=== PATIENT | male | born 1980 | race Caucasian/White ===

== ENCOUNTER 2018-08-17 23:49 | Emergency (ER) | payer MEDICAID, SELFPAY ==
[2018-08-17 23:50] VITALS: BP 136/92; PULSE 97; RESP 17; TEMP 36.7; O2SAT 99; BMI 34.2
[2018-08-18] VITALS (15 sets, daily range): BP systolic 126–159; BP diastolic 76–90; PULSE 84–112; RESP 14–18; O2SAT 97–100
--- NOTE | 2018-08-18 00:08 | ED.RN ---
ATTEMPTED TO CALL PATIENTS EX-BRITNEY BELLA AT [phone]. SHE DID NOT ANSWER HER PHONE. PT NOTIFIED OF ATTEMPT
[2018-08-18 00:09] LABS: Vista UDS pH Range 6
[2018-08-18 00:17] LABS: Absolute Lymphocyte Count 4.93 X10^3/ul (0.83-4.51); Absolute Neutrophil Count 4.5 X10^3/uL (2.0-7.7); Basophil# 0.06 X10^3/uL; Basophil% 0.6 % (0-1); Eosinophil# 0.16 X10^3/uL; Eosinophils% 1.5 % (0-5); Hematocrit 43.9 % (40-54); Hemoglobin 15.5 g/dl (13.0-16.5); Lymphocyte # 4.93 X10^3/ul (4.0); Lymphocyte % 46.6 % (19-41); Mean Corp Hgb Conc 35.3 g/gl (32-36); Mean Corpuscular Hgb 29.6 pg (27.0-32.0); Mean Corpuscular Volume 83.9 fL (80-94); Mean Platelet Vol. 10.1 fl (6.2-12.0); Monocyte# 0.91 X10^3/uL; Monocyte% 8.6 % (0-10); Neutrophil % 42.4 % (47-70); POSITIVE COUNT NO; POSITIVE DIFFERENTIAL NO; POSITIVE MORPHOLOGY NO; Platelet Count 317 K/mm3 (150-450); RBC Distribution Width CV 13.9 % (11.6-14.6); RBC Distribution Width SD 42.1 fl (35.1-43.9); Red Blood Count 5.23 M/mm3 (4.6-6.2); White Blood Count 10.6 K/mm3 (4.4-11.0)
[2018-08-18 00:24] LABS: Amphetamine Urine VISTA NEGATIVE (<1000 ng/mL); Barbiturate Urine VISTA NEGATIVE (< 200 ng/mL); Benzodiazepine Urine VISTA NEGATIVE (< 200 ng/mL); Cocaine Urine VISTA NEGATIVE (< 300 ng/mL); Ecstacy Urine VISTA POSITIVE (< 500 ng/mL); Methadone Urine VISTA NEGATIVE (< 300 ng/mL); PCP Urine VISTA NEGATIVE (< 25 ng/mL); THC Urine VISTA NEGATIVE (< 50 ng/mL)
[2018-08-18 00:27] LABS: Anion Gap 8 (5-15); BUN 6 mg/dL (7-18); BUN/Creat Ratio 6.1 RATIO (10-20); Calcium,Total 8.7 mg/dL (8.5-10.1); Chloride 112 mmol/L (98-107); Creatinine, Serum 0.99 mg/dL (0.70-1.30); EST Glomerular Filtration Rate 89 mL/min (>60); Est Glom Filt Rate - Afr Amer 108 mL/min (>60); Glucose 102 mg/dL (74-106); Potassium 3.7 mmol/L (3.5-5.1); Sodium Level 142 mmol/L (136-145)
--- NOTE | 2018-08-18 00:52 | ED.VISSUMM ---
- ER Visit Summary Date of Service: 08/18/18 Chief Complaint: Suicidal ideation History of Present Illness: The patient is a 38 M who presents with suicidal ideations. Patient reports that he has been having suicidal thoughts for quite a while. However this was worse tonight. He considered a running into traffic. He contacted the counseling center and came in for evaluation. He states his symptoms are worse tonight due to alcohol. He is intoxicated. He otherwise denies recent medical illness. No fevers chest pain shortness of breath vomiting. Physical Examination: Afebrile vitals normal Patient calm and cooperative Patient does report suicidal thoughts and has a blunted affect Heart regular rate and rhythm Lungs clear Abdomen soft Test Results: CBC BMP unremarkable. Drug screen positive for MDMA. Alcohol 237. Emergency Department Course and Treatment: Once patient clinically sober he will be medically cleared. Patient will be observed until morning at which point he can be evaluated by crisis. Given suicidal thoughts with plan I do think he will ultimately need transferred. Treatment Plan: [] Disposition: Transfer pending crisis evaluation Impression: Suicidal ideation This note was generated with [employer] dictation software. It may contain incorrect words, spelling, and punctuation that were not noted in review of the chart prior to signing ED Disposition - Plan for ED Patient: Referrals: Diomedes Shine DO [Primary Care Provider] -
[2018-08-18] MEDS: LORazepam 1 MG Tablet PO ×2 (02:25→15:25)
--- NOTE | 2018-08-18 02:43 | ED.RN ---
PT FAMILY MEMBER CALLED AND WANTED THE TEAM TO BE AWARE THAT THE PT HAS HAD EPISODES OF SUICIDAL THOUGHTS BEFORE AND TAT THEY ARE TRIGGERED BY DRINKING ALCOHOL. DR. HALEY MADE AWARE NO FURTHER ORDERS AT THIS TIME WILL CONTINUE TO MONITOR THE PT AT THIS TIME.
--- NOTE | 2018-08-18 07:07 | ED.RN ---
HAND OFF REPORT GIVEN TO MYLES TONEY.
--- NOTE | 2018-08-18 07:12 | ED.RN ---
CALLED COUNSELING CENTER. THEY ARE PAGING CRISIS
--- NOTE | 2018-08-18 08:27 | ED.RN ---
SPOKE WITH BOBBY AT CRISIS, THEY JUST FINISHED REPORT. SOMEONE WILL BE OVER
--- NOTE | 2018-08-18 09:07 | ED.RN ---
STANLEY WITH CRISIS IS HERE TO EVAL PT
[2018-08-18] MEDS: Topiramate 25 MG Tablet PO (10:25)
[2018-08-18] MEDS: Pantoprazole Sodium 40 MG Tablet PO (10:26)
[2018-08-18] MEDS: busPIRone 5 MG Tablet PO (10:27)
[2018-08-18] MEDS: Cyanocobalamin 500 MCG Tablet PO (10:27)
[2018-08-18] MEDS: buPROPion (XL) 300 MG TABLET.XL PO (10:27)
[2018-08-18] MEDS: Lisinopril 20 MG Tablet PO (10:28)
[2018-08-18] MEDS: Aspirin 81 MG TAB.CHEW PO (10:28)
--- NOTE | 2018-08-18 10:30 | CM.ED ---
SOCIAL WORK DISCUSSED CASE WITH ELVIA FROM CRISIS. ANTICIPATE INPATIENT PSYCH PLACEMENT. NO REFERRALS HAVE BEEN MADE AT THIS TIME. THIS WORKER TO ASSIST NEEDED. FLOR TURK, LETTERPRESS SETTER, MANAGER TECHNICAL SERVICES.
[2018-08-18] MEDS: Etodolac 200 MG Capsule PO (10:46)
--- NOTE | 2018-08-18 11:35 | CM.ED ---
SOCIAL WORK UPDATED BY NURSING, PATIENT AND PATIENT'S GIRLFRIEND UPSET ABOUT PINK SLIP/PLACEMENT. GIRLFRIEND STATING WILL GET AN BURNISHER AND BUMPER. TEAMCENTER CONSULTANT, ELVIA HAS LEFT THE DEPARTMENT. CALL TO CRISIS, NO ANSWER. CALL TO [facility] WITH CRISIS. LEFT MESSAGE REQUESTING CALL BACK. THIS WORKER TO ROOM TO EXPLAIN PINK SLIP AND REFERRAL PROCESS. PATIENT STATES I DO NOT WANT TO GO TO [place] WHERE NO ONE CAN VISIT ME. THIS WORKER INFORMED CRISIS HAS BEEN CALLED. GIRLFRIEND STATES SHE IS WAITING GRAB DRIVER BACK FROM PATIENT'S COUNSELING AT [facility] WHO IS NOT IN AGREEMENT WITH PLACEMENT?? GIRLFRIEND STATES WILL BE SEEKING OUT AN BURNISHER AND BUMPER AND PATIENT ADVOCATE. INFORMED AGAIN THAT PATIENT HAS BEEN PINK SLIPPED AND WILL UPDATE CRISIS ON CONCERNS. NURSING AND DR. TOMAS UPDATED ON THE ABOVE. FLOR TURK, PROFILER, BEATER DUMPER.
--- NOTE | 2018-08-18 12:00 | CM.ED ---
SOCIAL WORK RECEIVED CALL BACK FROM SOL WITH CRISIS. INFORMED SOL OF CONCERNS OF PATIENT AND PATIENT'S GIRLFRIEND. SOL TO FOLLOW UP WITH SUSAN. LFOR TURK, ROLLER DIE CUTTING MACHINE OPERATOR, CHANNEL TURNER.
--- NOTE | 2018-08-18 12:11 | ED.RN ---
[facility] CALLED TO DECLINE THE PT. THE DR FEELS THAT HE SHOULD RETURN TO [facility] FOR CONTINUED CARE. CALLED AND LEFT A MESSAGE WITH DOTTIE AT THE COUNSELING CENTER
--- NOTE | 2018-08-18 12:15 | CM.ED ---
SOCIAL WORK UPDATED BY PATIENT'S NURSE, DAWNA. PER DAWNA, SPOKE WITH PATIENT ALONE AND HE IS IN AGREEMENT WITH PLACEMENT AND WANTS PLACEMENT. THIS WORKER AND NURSE TO DISCUSS WITH PATIENT'S GIRLFRIEND WHO HAS STEPPED OUT OF DEPARTMENT. DAWNA AND THIS WORKER ATTEMPTED TO UPDATE GIRLFRIEND IN LOBBY. GIRLFRIEND REFUSING TO SPEAK WITH NURSE AND THIS WORKER AT THIS TIME. THIS WORKER TO REMAIN AVAILABLE FOR NEEDS. FLOR TURK, CELL CLEANER, FOUNDRY TECHNICIAN.
--- NOTE | 2018-08-18 12:22 | CM.ED ---
SOCIAL WORK CALL FROM SADA WITH [facility] AND REPORTS PATIENT IS ACCEPTED. PROVIDED [facility] WITH CONTACT NUMBER FOR ELVIA AT CRISIS PER REQUEST. FACE TO FACE WITH PATIENT IN ROOM TO UPDATE. FLOR TURK, BUILDING RIGGER, ANIMAL TRAINER.
--- NOTE | 2018-08-18 12:24 | ED.RN ---
DEIDRE WITH [facility] CALLED AND TALKED TO FLOR, SHE STATED THAT THEY ARE ACCEPTING THE PT
--- NOTE | 2018-08-18 12:26 | ED.RN ---
GIRLFRIEND THAT IS AT BEDSIDE WITH PT CONTINUOUSLY ARGUING PT BEING TRANSFERRED AND PINK SLIP. GIRLFRIEND RAISING VOICE AND RUDE TO STAFF. HAD PRIVATE CONVERSATION WITH PT, PT STATES THAT HE IS AGREEABLE TO PLACEMENT. HE REQUESTS THAT HE WOULD LIKE TO BE CLOSE TO THE AREA, BUT IS IN AGREEMENT TO PSYCHIATRIC CARE FOR SUICIDAL IDEATION. PT VERBALIZED CONSENT TO TALK TO GIRLFRIEND ABOUT CARE. ATTEMPTED TO TALK TO GIRLFRIEND WITH FLOR THE RETAIL SALES TEAMMATE AND GIRLFRIEND REFUSED. INFORMED GIRLFRIEND THAT SHE WOULD NOT BE ALLOWED IN DEPARTMENT UNTIL SHE IS IN A CALM STATE. PT VERBALIZES UNDERSTANDING OF THIS.
--- NOTE | 2018-08-18 12:31 | CM.ED ---
SOCIAL WORK CALL TO [facility] WITH CRISIS TO UPDATE PATIENT HAS BEEN ACCEPTED TO [facility] AND SADA FROM [facility] WILL BE CONTACTING THE COUNSELING CENTER. FLOR TRUK, WOOD HEEL ATTACHER, DELICATESSEN DEPARTMENT MANAGER.
--- NOTE | 2018-08-18 12:59 | ED.RN ---
SECURITY AND THIS RN SPOKE TO PT GIRLFRIEND. GIRLFRIEND MADE AWARE THAT IF SHE UPSETS PT SHE WILL BE REMOVED FROM THE DEPARTMENT.
[2018-08-18] MEDS: Acetaminophen/Butalbital/Caffe 1 Tablet 2 TABLET PO (13:51)
--- NOTE | 2018-08-18 15:00 | CM.ED ---
SOCIAL WORK UPDATED BY NURSING, TRANSPORTATION COMING AT 1600 TO TRANSPORT PATIENT TO [facility]. FLOR TURK, SALT GRINDER, COLUMNIST/COMMENTATOR.
== END 2018-08-18 16:44 ==
PROVIDERS: Emergency Medicine; Emergency Provider Emergency Medicine; Family Provider Student in an Organized Health Care Education/Training Program; PCP Student in an Organized Health Care Education/Training Program
DX: R45.851 Suicidal ideations (principal); F10.129 Alcohol abuse with intoxication, unspecified; Y90.7 Blood alcohol level of 200-239 mg/100 ml; I10 Essential (primary) hypertension; Z72.0 Tobacco use; Z79.82 Long term (current) use of aspirin; Z79.899 Other long term (current) drug therapy
CPT/HCPCS: 36415; 80048; 80307; 80320; 85025; 99285; G0480

== ENCOUNTER 2018-10-02 21:44 | Emergency (ER) | payer MEDICAID, SELFPAY ==
[2018-10-02 21:45] VITALS: BP 120/77; PULSE 104; RESP 20; TEMP 36.4; O2SAT 97; BMI 32.6
--- NOTE | 2018-10-02 22:27 | ED.DCSUM_ITS ---
- ER Visit Summary Date of Service: 10/02/18 Chief Complaint: Back pain History of Present Illness: The patient is a 38 M who presents with back pain. He does have a history of prior back pain. This is been increased over the last 2 days. Normally his lower back hurts but now is complaining of pain in the upper back. This is sharp. Is worse with certain movements or bending. It is relieved by remaining still. He does note that he has to physical activity with work often bending over and lifting up buckets and is also been doing a lot of cleaning and physical activity around the house with spring cleaning. He denies any numbness tingling weakness or radiation to the extremities no fevers no a bdominal pain no urinary retention or fecal incontinence. No prior back surgery. Physical Examination: Afebrile heart rate 104 respiratory rate 20 Moist mucous membranes No distress Heart regular rate and rhythm Lungs are clear Abdomen soft nontender nondistended Patient does have paraspinal thoracic tenderness more so on the left no midline tenderness he has normal strength and sensation of the extremities Test Results: Not indicated Emergency Department Course and Treatment: Patient's history and examination are consistent with a thoracic strain. He is already on appropriate therapy. He is prescribed Lodine and Zanaflex at home. He was reassured. He states basically came in just to make sure that there was nothing more serious going on. I explained I do think this is most likely related to thoracic muscular strain. He was also advised on other supportive care such as heat for muscle spasm. All questions answered at bedside. Patient agreeable to this plan. Patient discharged. Treatment Plan: [] Disposition: Discharge Impression: Thoracic strain This note was generated with [employer] dictation software. It may contain incorrect words, spelling, and punctuation that were not noted in review of the chart prior to signing ED Disposition - Plan for ED Patient: Referrals: Diomedes Shine DO [Primary Care Provider] -
--- NOTE | 2018-10-02 22:30 | ED.DEP ---
ED Disposition - Plan for ED Patient: Instructions: Thoracic Strain Referrals: Diomedes Shine DO [Primary Care Provider] -
== END 2018-10-02 22:53 | disposition home or self-care (01) ==
LOC: ED 22:37
PROVIDERS: Emergency Provider Emergency Medicine; Family Provider Student in an Organized Health Care Education/Training Program; PCP Student in an Organized Health Care Education/Training Program
DX: S29.012A Strain of muscle and tendon of back wall of thorax, initial encounter (principal); X50.3XXA Overexertion from repetitive movements, initial encounter; Y93.E9 Activity, other interior property and clothing maintenance; Y92.009 Unspecified place in unspecified non-institutional (private) residence as the place of occurrence of the external cause; I10 Essential (primary) hypertension; K21.9 Gastro-esophageal reflux disease without esophagitis; Z79.82 Long term (current) use of aspirin; Z79.899 Other long term (current) drug therapy
CPT/HCPCS: 99282

== ENCOUNTER 2018-10-24 12:05 | Outpatient (RCR) | payer MEDICAID, SELFPAY | END 2018-10-24 23:59 | disposition home or self-care (01) | LOC: NS 12:05 | PROVIDERS: Family Provider Student in an Organized Health Care Education/Training Program; PCP Student in an Organized Health Care Education/Training Program; Visit Provider Student in an Organized Health Care Education/Training Program | DX: E66.9 Obesity, unspecified (principal); Z71.3 Dietary counseling and surveillance | CPT/HCPCS: 97802 ==

== ENCOUNTER 2018-12-05 10:58 | Day surgery (SDC) | payer MEDICAID, SELFPAY ==
[2018-12-05] VITALS (7 sets, daily range): BP systolic 97–113; BP diastolic 68–78; PULSE 66–90; RESP 16–18; TEMP 35.9–37.2; O2SAT 93–100; BMI 33.5
[2018-12-05] MEDS: Lactated Ringers 1,000 ML 75 ML IV (11:47)
--- NOTE | 2018-12-05 12:00 | EGD_PTH ---
PATIENT: BILL ROWE LOC: EN U#:[id number] AGE/SX: 38/M ROOM: RE12/05/[address]: Dr. Twan Scherer MD : 1980 BED: DIS: 12/05/2018 SPEC #: [id number] RECD: 12/05/18 13:50 STATUS: OLIVER ISAIAH #: [id number] SEJAL: 12/05/18 12:[address]: Twan Scherer DEPT: SURGICAL PATHOLOGY RECD BY: Rosemary Arias ENTERED: 12/05/18 14:16 SP TYPE: EGD BIOPSY OT DR: Dr. Diomedes Shine DO Tissues: A - Jejunum, NOS B - Gastric mucous membrane C - Esophageal mucous membrane D - Esophageal mucous membrane Procedures: Special Stain Group II Surgery Specimen Level IV Alcian Blue/PAS (control) HEADER OPERATION: EGD ([facility] [place]) PRE-OP DIAGNOSIS: Epigastric pain, vomiting after meals TISSUE SUBMITTED: A. Jejunal biopsy, B. Antral biopsy for H. pylori and pathology, C. Distal esophageal biopsy, rule out Hopkins's, D. Mid esophageal biopsy MICROSCOPIC DIAGNOSIS A. Jejunal biopsy: A fragment of small intestinal mucosa, no pathologic diagnosis. B. Antral biopsy: Mild gastritis. See microscopic description and comment. C. Distal esophageal biopsy: A fragment of gastroesophageal mucosa with mild chronic inflammation. Intestinal metaplasia (goblet cell metaplasia) is not identified. See comment. D. Mid esophageal biopsy: Fragments of squamous epithelium with mild chronic inflammation. SJ:jazmin 12/06/18 COMMENT B. The results of immunohistochemistry for Helicobacter pylori will be reported separately ([id number]). C. Alcian blue/PAS stain with matched control is used in the evaluation of the specimen. MICROSCOPIC DESCRIPTION Slides are reviewed. B. The specimen shows fragments of gastric mucosa with chronic inflammatory cell infiltrates in the lamina propria consisting of lymphocytes and plasma cells, consistent with mild chronic gastritis. GROSS DESCRIPTION A - Received in fixative is one container labeled with the patient's name and designated jejunal biopsy. The specimen consists of one irregular fragment of light nelson soft tissue that measures 0.3 x 0.3 x 0.1 cm. The specimen is totally submitted in one cassette. B - Received in fixative is one container labeled with the patient's name and designated antral biopsy. The specimen consists of one irregular fragment of light nelson soft tissue that measures 0.3 x 0.3 x 0.1 cm. The specimen is totally submitted in one cassette. C - Received in fixative is one container labeled with the patient's name and designated distal esophageal biopsy. The specimen consists of one irregular fragment of light nelson soft tissue that measures 0.5 x 0.2 x 0.1 cm. The specimen is totally submitted in one cassette. D - Received in fixative is one container labeled with the patient's name and designated mid esophagea biopsy. The specimen consists of two irregular fragments of light nelson soft tissue that in aggregate measure 0.8 x 0.2 x 0.1 cm. The specimen is totally submitted in one cassette. / SJ:rg 12/05/18 TC:3 CPT: 86658 x4, 49661
--- NOTE | 2018-12-05 12:00 | IMM_PTH ---
PATIENT: BILL ROWE LOC: EN U#:[id number] AGE/SX: 38/M ROOM: RE12/05/[address]: Dr. Twan Scherer MD : 1980 BED: DIS: 12/05/2018 SPEC #: [id number] RECD: 12/05/18 14:24 STATUS: SOUVarun REQ #: [id number] SEJAL: 12/05/18 12:[address]: Twan Scherer DEPT: IMMUNOHISTOCHEMISTRY RECD BY: Karina Jiménez ENTERED: 12/05/18 14:24 SP TYPE: IMMUNO OTHR DR: Dr. Diomedes Shine DO Tissues: B - Stomach, NOS Procedures: H Pylori (initial) PHYSICIAN & INSTITUTION [place] [id number] SPECIMEN INFORMATION: Tissue Source: B - Antral biopsy Clinical Info: Epigastric pain; vomiting after meals Specimen Number: [id number] CPT code: 17297 METHODOLOGY: Deparaffinized sections of prefer/formalin-fixed tissue or PAP/DQ stained slides are incubated with monoclonal/polyclonal antibodies/oligonucleotide probes. Localization is made via biotin free immunoperoxidase method. Appropriate controls are performed and reacted as expected. Results on target cell population are indicated in the following table: RESULTS: ANTIBODY / CLONE RESULT Block B H Pylori (polyclonal) negative These tests were developed and their performance characteristics determined by [facility]. They may not have been cleared or approved by the U.S. Food and Drug Administration. The FDA has determined that such clearance or approval is not necessary. INTERPRETATION: B. Antral biopsy: Negative for Helicobacter pylori organisms. SJ:jazmin 12/06/18
--- NOTE | 2018-12-05 13:05 | PCM.HP.STD ---
History of Present Illness Date of Admission: 12/05/18 The patient is a 38 year old M with epigastric pain and vomiting after meals. symptoms worsening. Prior EGD in [address] Hatch - mild gastritis Past Medical History Past Medical History (Chronic Problems): Chronic Problems Alcoholism (Chronic) Bipolar disorder (Chronic) Benign essential hypertension (Chronic) Allergies No Known Allergies Allergy (Verified 12/05/18 11:28) Home Medications: Ambulatory Orders Medication Instructions Recorded Aspirin [Aspirin, Baby] 81 mg PO DAILY@0800 09/23/15 Albuterol Inhaler [Ventolin Hfa 2 puff INHALATION Q4H PRN PRN 08/18/18 (SP)] Apap/Isometheptene/Dichlphen 1 capsule PO PRN PRN 08/18/18 [Midrin] Cholecalciferol (Vitamin D3) 5,000 unit PO DAILY 08/18/18 [Vitamin D3] Etodolac [Lodine] 200 mg PO BID 08/18/18 Lansoprazole [Prevacid] 30 mg PO DAILY 08/18/18 Lisinopril 20 mg PO DAILY 08/18/18 Ondansetron HCl [Zofran] 4 mg PO Q6H PRN PRN 08/18/18 Riboflavin (Vitamin B2) [Vitamin 100 mg PO 4X/DAY 08/18/18 B-2] Rosuvastatin Calcium [Crestor] 40 mg PO DAILY 08/18/18 Tizanidine HCl [Zanaflex] 2 mg PO Q8H PRN 08/18/18 Topiramate [Topamax] 25 mg PO BID 08/18/18 Vit B12/Levomefolate/Vit B6/B2 1 each PO DAILY 08/18/18 [l-Methyl-Mc Tablet] buPROPion XL [Wellbutrin Xl] 300 mg PO DAILY 08/18/18 busPIRone [Buspar] 5 mg PO TID 08/18/18 traZODone [Desyrel] 50 mg PO QHS 08/18/18 Sertraline HCl [Zoloft] 25 mg PO DAILY 12/04/18 Surgical History: no surgical history Smoking Status: Former smoker Review of Systems Constitutional: Reports: Anorexia. Denies: Chills, Fever, Weight Change HEENT: Denies: Head Aches, Sinus Congestion, Sinus Drainage Cardiovascular: Denies: Chest Pain, Palpitations Respiratory: Denies: Cough, Shortness of breath at rest, Sputum production Gastrointestinal: Reports: Abdominal Pain, Vomiting. Denies: Nausea Genitourinary: Denies: Dysuria Musculoskeletal: Denies: Joint Pain, Joint Tenderness Skin: Denies: Rash, Wounds Neurological: Denies: Numbness, Tingling, Focal weakness Psychiatric: Denies: Anxiety, Depression, Homicidal Ideations, Suicidal Ideations Hematologic/ Lymphatic: Denies: Easy Bruising, Easy Bleeding VTE Information - Inpt Only VTE Present on Admission: No - Physical Exam General: Alert, Oriented x3, Cooperative HEENT: Atraumatic, PERRLA, EOMI, Normocephalic Neck: Supple, No JVD, Negative Carotid Bruits Lungs: Clear to auscultation, Normal air movement Cardiovascular: Regular rate, No murmurs Abdomen: Bowel Sounds Present, Soft, Non Tender Extremities: No edema, Capillary Refill Less than 3 Seconds Skin: No rashes, No breakdown Musculoskeletal: No Tenderness to Palpation of Joints or Extremities Neurological: Cranial nerves II-XII grossly intact Psych/Mental Status: Normal Affect, Appropriate Vital Signs Temp Pulse Resp BP Pulse Ox 99.0 F 66 16 111/72 100 12/05/18 11:37 12/05/18 11:37 12/05/18 11:37 12/05/18 11:37 12/05/18 11:37 Oxygen Delivery Method Room Air Weight: 94.2 kg Body Mass Index (BMI) 33.5 Assessment/Plan epigastric pain, vomiting. I will plan for EGD. The patient understands the risks, benefits, alternatives and possible complications and accepts. We will plan for MAC
--- NOTE | 2018-12-07 06:36 | OP.ENDO_ITS ---
12/07/2018 Diomedes Shine [address] [place] [id number] Re : Upper GI endoscopy procedure for Marco Antonio Freedman Dear Dr. Shine This procedure was performed on Wednesday, December 05, 2018. My impressions and recommendations are as follows: Impressions : - Normal examined jejunum. Biopsied. - Normal examined duodenum. - Normal stomach. Biopsied. - Normal gastroesophageal junction. - Moderately severe reflux esophagitis. Rule out Hopkins's esophagus. Biopsied. - Normal middle third of esophagus. Biopsied. Recommendations : - Return to my office in 1 week. - Continue present medications. My findings are described in the full procedure note, which is enclosed. If I can be of further assistance, please feel free to contact me at Doctor phone number(s): , Work: . Sincerely, Twan Scherer MD 12/07/2018 6:35:29 AM This report has been signed electronically.
== END 2018-12-05 14:12 | disposition home or self-care (01) ==
LOC: EN 10:59 → AC 11:00
PROVIDERS: Family Provider Student in an Organized Health Care Education/Training Program; PCP Student in an Organized Health Care Education/Training Program; Referring Provider Student in an Organized Health Care Education/Training Program; Visit Provider Surgery
PROC: 0DJ08ZZ Inspection of Upper Intestinal Tract, Via Natural or Artificial Opening Endoscopic (ICD-10-PCS; CPT 43235; principal; 2018-12-05 11:55)
DX: K29.70 Gastritis, unspecified, without bleeding (principal); R13.10 Dysphagia, unspecified; I10 Essential (primary) hypertension; G43.909 Migraine, unspecified, not intractable, without status migrainosus; E78.00 Pure hypercholesterolemia, unspecified; K21.0 Gastro-esophageal reflux disease with esophagitis; F10.20 Alcohol dependence, uncomplicated; F32.9 Major depressive disorder, single episode, unspecified; F41.9 Anxiety disorder, unspecified; F17.228 Nicotine dependence, chewing tobacco, with other nicotine-induced disorders; Z79.82 Long term (current) use of aspirin; Z79.899 Other long term (current) drug therapy
CPT/HCPCS: 43239; 88305; 88313; 88342; J7120; J2405

== ENCOUNTER 2018-12-13 21:30 | Emergency (ER) | payer MEDICAID, SELFPAY ==
[2018-12-05 11:37] VITALS: BMI 33.5
[2018-12-13 21:31] VITALS: BP 126/67; PULSE 105; RESP 18; TEMP 36.3; O2SAT 96; BMI 33.7
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
[2018-12-13 22:24] LABS: Absolute Lymphocyte Count 3.61 X10^3/uL (0.83-4.51); Absolute Neutrophil Count 9.3 X10^3/uL (2.0-7.7); Basophil# 0.13 X10^3/uL; Basophil% 0.9 % (0-1); Eosinophil# 0.23 X10^3/uL; Eosinophils% 1.5 % (0-5); Hemoglobin 16.5 g/dL (13.0-16.5); Lymphocyte # 3.61 X10^3/ul (4.0); Lymphocyte % 24.3 % (19-41); Mean Corpuscular Volume 90.9 fL (80-94); Mean Platelet Vol. 9.9 fl (6.2-12.0); Monocyte# 1.36 X10^3/uL; Monocyte% 9.2 % (0-10); NRBC Flagged by Analyzer 0 % (0-5); Neutrophil # 9.32 X10^3/uL (2.7-7.7); Neutrophil % 62.7 % (47-70); Platelet Count 280 K/mm3 (150-450); RBC Distribution Width CV 13.1 % (11.6-14.6); RBC Distribution Width SD 43.6 fl (35.1-43.9); White Blood Count 14.9 K/mm3 (4.4-11.0)
[2018-12-13 22:30] VITALS: RESP 18
[2018-12-13 23:00] VITALS: RESP 18
[2018-12-13 23:01] LABS: Anion Gap 9 (5-15); BUN 7 mg/dL (7-18); BUN/Creat Ratio 6.9 RATIO (10-20); Chloride 113 mmol/L (98-107); Creatinine, Serum 1.02 mg/dL (0.70-1.30); EST Glomerular Filtration Rate 86 mL/min (>60); Est Glom Filt Rate - Afr Amer 104 mL/min (>60); Estimated Creatinine Clearance 87.74 ml/min; Glucose 113 mg/dL (74-106); Potassium 4.1 mmol/L (3.5-5.1); Sodium Level 143 mmol/L (136-145)
[2018-12-13 23:02] LABS: Amphetamine Urine VISTA NEGATIVE (<1000 ng/mL); Barbiturate Urine VISTA NEGATIVE (< 200 ng/mL); Benzodiazepine Urine VISTA NEGATIVE (< 200 ng/mL); Cocaine Urine VISTA NEGATIVE (< 300 ng/mL); Ecstacy Urine VISTA POSITIVE (< 500 ng/mL); Methadone Urine VISTA NEGATIVE (< 300 ng/mL); PCP Urine VISTA NEGATIVE (< 25 ng/mL); THC Urine VISTA NEGATIVE (< 50 ng/mL); Vista UDS pH Range 5
--- NOTE | 2018-12-13 23:14 | ED.RN ---
PT REQUESTED HIS FIANCE BE CONTACTED, BRITNEY DID NOT ANSWER AT THIS TIME [id number].
--- NOTE | 2018-12-13 23:18 | ED.RN ---
PT REQUESTS THIS RN CALL PATIENT S/O JEIMY SHEPARD. PT DECLINES WANTING TO SPEAK TO HER, BUT REQUESTS THAT SHE BE INFORMED OF PT PLAN OF CARE. WITH PT PERMISSION, JEIMY INFORMED REGARDING PT BEING PRESENT IN ED AND WAITING TO BE LEGALLY SOBER TO TALK WITH CRISIS COUNSELOR. PER JEIMY, PT HAS NOT BEEN ABLE TO SEE HIS REGULAR COUNSELOR BECAUSE SHE IS ON SABBATICAL, AND HAS NOT BEEN ABLE TO SEE ANYONE ELSE TO FOLLOW UP. SHE ALSO REPORTS THAT SHE WILL TRY TO COME IN THE MORNING TO VISIT.
[2018-12-14] VITALS (18 sets, daily range): BP systolic 109–134; BP diastolic 69–88; PULSE 77–98; RESP 14–20; O2SAT 95–100
[2018-12-14] MEDS: Aspirin 81 MG TAB.CHEW PO (07:46)
--- NOTE | 2018-12-14 07:49 | ED.RN ---
pt refused breakfast, i dont eat breakfast.
--- NOTE | 2018-12-14 08:38 | NURSING ---
I TALKED TO TYRA AT THE [facility] ABOUT THE PATIENT. SHE SAID SHE WOULD PASS IT ON IN REPORT.
[2018-12-14] MEDS: Sertraline 50 MG Tablet 25 MG PO (10:49)
[2018-12-14] MEDS: Lisinopril 20 MG Tablet PO (10:50)
[2018-12-14] MEDS: busPIRone 5 MG Tablet PO ×2 (10:50→14:53)
[2018-12-14] MEDS: buPROPion (XL) 300 MG TABLET.XL PO (10:50)
[2018-12-14] MEDS: Topiramate 25 MG Tablet PO (10:50)
[2018-12-14] MEDS: Pantoprazole Sodium 40 MG Tablet PO (10:51)
--- NOTE | 2018-12-14 12:05 | ED.RN ---
CRISIS SENT A REFERRAL TO [facility], WAITING TO HEAR BACK FROM THE FACILITY.
== END 2018-12-14 18:10 ==
LOC: ED 22:21
PROVIDERS: Emergency Medicine; Emergency Provider Emergency Medicine; Family Provider Student in an Organized Health Care Education/Training Program; PCP Student in an Organized Health Care Education/Training Program
DX: F31.9 Bipolar disorder, unspecified (principal); R45.851 Suicidal ideations; F10.229 Alcohol dependence with intoxication, unspecified; Y90.8 Blood alcohol level of 240 mg/100 ml or more; I10 Essential (primary) hypertension; F43.10 Post-traumatic stress disorder, unspecified; E66.9 Obesity, unspecified; Z79.82 Long term (current) use of aspirin; Z79.899 Other long term (current) drug therapy; Z87.891 Personal history of nicotine dependence
CPT/HCPCS: 80048; 80307; 80320; 85025; 99285; G0480

== ENCOUNTER 2019-01-11 21:03 | Emergency (ER) | payer MEDICAID, SELFPAY ==
[2019-01-11 21:04] VITALS: BP 139/87; PULSE 90; RESP 18; TEMP 36.2; O2SAT 96; BMI 34.6
--- NOTE | 2019-01-11 21:26 | ED.RN ---
PT ADMITS TO WANTING TI KILL HIMSELF BY PLAYING IN TRAFFIC OR OVERDOSING. PT STATES HE IS MORE DEPRESSED TODAY IS HIS 'S BIRTHDAY. .
--- NOTE | 2019-01-11 21:38 | ED.RN ---
RN WITH PT FROM TIME OF TRIAGE UNTIL 1:1 SITTER ASSIGNED AND IN ROOM.
[2019-01-11 21:47] LABS: Absolute Lymphocyte Count 3.27 X10^3/uL (0.83-4.51); Absolute Neutrophil Count 7.6 X10^3/uL (2.0-7.7); Basophil# 0.06 X10^3/uL; Basophil% 0.5 % (0-1); Eosinophil# 0.31 X10^3/uL; Eosinophils% 2.5 % (0-5); Hematocrit 43.7 % (40-54); Hemoglobin 14.4 g/dL (13.0-16.5); Lymphocyte # 3.27 X10^3/ul (4.0); Lymphocyte % 26.6 % (19-41); Mean Corpuscular Hgb 28.9 pg (27.0-32.0); Mean Corpuscular Volume 87.6 fL (80-94); Mean Platelet Vol. 9.3 fl (6.2-12.0); Monocyte# 0.99 X10^3/uL; NRBC Flagged by Analyzer 0 % (0-5); Neutrophil # 7.62 X10^3/uL (2.7-7.7); Platelet Count 325 K/mm3 (150-450); RBC Distribution Width CV 12.7 % (11.6-14.6); RBC Distribution Width SD 40.5 fl (35.1-43.9); Red Blood Count 4.99 M/mm3 (4.6-6.2); White Blood Count 12.3 K/mm3 (4.4-11.0)
[2019-01-11 21:55] LABS: Amphetamine Urine VISTA NEGATIVE (<1000 ng/mL); Barbiturate Urine VISTA NEGATIVE (< 200 ng/mL); Benzodiazepine Urine VISTA NEGATIVE (< 200 ng/mL); Cocaine Urine VISTA NEGATIVE (< 300 ng/mL); Ecstacy Urine VISTA NEGATIVE (< 500 ng/mL); Methadone Urine VISTA NEGATIVE (< 300 ng/mL); PCP Urine VISTA NEGATIVE (< 25 ng/mL); THC Urine VISTA NEGATIVE (< 50 ng/mL); Vista UDS pH Range 5
[2019-01-11 22:03] LABS: Anion Gap 7 (5-15); BUN 11 mg/dL (7-18); BUN/Creat Ratio 10.2 RATIO (10-20); Calcium,Total 8.7 mg/dL (8.5-10.1); Chloride 107 mmol/L (98-107); Creatinine, Serum 1.08 mg/dL (0.70-1.30); EST Glomerular Filtration Rate 81 mL/min (>60); Est Glom Filt Rate - Afr Amer 98 mL/min (>60); Estimated Creatinine Clearance 82.87 ml/min; Glucose 92 mg/dL (74-106); Potassium 3.9 mmol/L (3.5-5.1); Sodium Level 139 mmol/L (136-145)
[2019-01-11 23:03] VITALS: PULSE 81; O2SAT 99
--- NOTE | 2019-01-11 23:38 | ED.VISSUMM ---
- ER Visit Summary Date of Service: 01/11/19 Chief Complaint: Suicidal ideation History of Present Illness: The patient is a 38 M who presents with suicidal ideation that began tonight. Patient is upset because today is his 's birthday. Patient states his has . Patient states that he has been feeling suicidal. Patient states she has thought of overdosing or jumping into traffic. Patient states he does see a counselor at 180. Patient admits to feeling depressed. Patient also admits to a mild headache. Patient does admit to drinking alcohol tonight. Physical Examination: Vital signs are stable. Patient is afebrile. Patient is in no acute distress. Oral mucosa is pink and moist. Neck is supple. Trachea is midline. There is no JVD noted. Heart was regular rate and rhythm. Lungs are clear and equal bilaterally. Abdomen is soft. Bowel sounds are normal. There is no tenderness. There is no guarding noted. Skin is warm dry. Cranial nerves II through XII are intact. There are no focal motor or sensory deficits noted. Patient does have a slightly depressed mood and flat affect. Patient admits to suicidal ideations. Test Results: CBC and basic metabolic profile were within normal limits. Serum alcohol level was slightly elevated at 125. Urine tox screen was negative. Emergency Department Course and Treatment: Patient was allowed to rest comfortably here in the emergency department. Sitter was provided. Case was discussed with crisis. They will be in to evaluate the patient. Crisis felt that the patient would benefit from inpatient therapy. They are attempting to place the patient. [place] slip was signed. Disposition: Transfer to psychiatric facility Impression: 1. Depression with suicidal ideation 2. Alcohol intoxication This note was generated with [employer] dictation software. It may contain incorrect words, spelling, and punctuation that were not noted in review of the chart prior to signing ED Disposition - Plan for ED Patient: Disposition: Psychiatric Hospital or Unit Diagnosis: Depression, Alcohol intoxication Referrals: Diomedes Shine DO [Primary Care Provider] -
[2019-01-12] VITALS (8 sets, daily range): BP systolic 105; BP diastolic 78; PULSE 85–100; RESP 14–16; O2SAT 96–97
--- NOTE | 2019-01-12 00:49 | ED.RN ---
patient information has been faxed to daly lange at this time
--- NOTE | 2019-01-12 01:32 | ED.RN ---
[facility] WITH CRISIS CALLED PATIENT ACCEPTED AT [place] [address] UNIT [phone] PATIENT IN A GOWN FAXED PINK SLIPS TO [phone].
--- NOTE | 2019-01-12 07:17 | NURSING ---
0703 CALLED [facility], NO TRANSPORT 0711 CALLED [facility], NO TRANSPORT 0713 CALLED [facility], 1HR TO 1.5 HRS
[2019-01-12] MEDS: Lisinopril 20 MG Tablet PO (07:37)
[2019-01-12] MEDS: Aspirin 81 MG TAB.CHEW PO (07:37)
[2019-01-12] MEDS: OLANZapine 5 MG/TAB TAB.RAPDIS 15 MG PO (07:38)
[2019-01-12] MEDS: Topiramate 25 MG Tablet PO (07:38)
--- NOTE | 2019-01-12 07:58 | ED.RN ---
Report given to Ghazala at [facility]
== END 2019-01-12 08:47 ==
PROVIDERS: Emergency Provider Emergency Medicine; Family Provider Student in an Organized Health Care Education/Training Program; PCP Student in an Organized Health Care Education/Training Program
DX: F32.9 Major depressive disorder, single episode, unspecified (principal); F10.129 Alcohol abuse with intoxication, unspecified; Y90.6 Blood alcohol level of 120-199 mg/100 ml; R45.851 Suicidal ideations; I10 Essential (primary) hypertension; F17.220 Nicotine dependence, chewing tobacco, uncomplicated; Z79.82 Long term (current) use of aspirin; Z79.899 Other long term (current) drug therapy
CPT/HCPCS: 80048; 80307; 80320; 85025; 99284; G0480

== ENCOUNTER 2019-02-05 09:00 | Outpatient (RCR) | payer MEDICAID, SELFPAY ==
--- NOTE | 2019-02-05 09:08 | BH.SGPN.GN ---
Behaviors/Verbalizations/Mental Status: [Client alert and oriented, casual dress, hygiene fair. Eye contact fair to good. Motor activity appropriate. Speech within normal limits. Affect congruent, mood anxious and dysthymic. Thoughts linear, logical, no signs of hallucinations or delusions. Reviewed client?s symptom tracker, no signs of suicidal ideation, plan, or intent as of today. ] Client Response/Progress/Benefit: [Pt new to IOP program, however did well to engage in group discussion and openly share current stressors impacting mental health as well as what he would like to get out of IOP treatment. Pt discussed that he is a recovering alcoholic and will be 30 days sober on Tuesday which has been a huge accomplishment for him. He noted a desire to learn healthier ways of coping with stressors and negative emotions rather than turning to avoidance and unhealthy distraction. Pt did well to identify the impact of turning to substance use on his mental health and maintaining depressive symptoms. Appeared to benefit from encouragement provided and structured group environment. Pt progress limited as it is his first day in IOP program, however he indicates motivation to better understand and learn to manage mental health sx. Continued IOP tx recommended to improve healthy coping skill repertoire, maintain safety, and promote healthy change behaviors.] Narrative Note: []
--- NOTE | 2019-02-05 10:25 | BH.SGPN.GN ---
Behaviors/Verbalizations/Mental Status: []Client alert and oriented, casual in appearance. Eye contact fair. Motor activity appropriate. Speech within normal limits. Affect congruent, mood anxious. Thoughts linear, logical, no signs of hallucinations or delusions. Client Response/Progress/Benefit: []Client passive participant as evidenced by client providing no nput throughout discussion, however did appear to listen attentively to others. Client agreed with others that he experiences automatic negative thoughts. Client connected with the discussion about how distorted thought patterns can reinforce mental health symptoms. Client shook his head in agreement with others that he also engages in mind reading and catastrophizing. Appeared to benefit from increasing awareness of cognitive distortions and how they can impact emotions and behaviors. Client to continue IOP to decrease depression, increase healthy coping skills, and prevent decompensation. Narrative Note: []
--- NOTE | 2019-02-05 11:25 | BH.SGPN.GN ---
Behaviors/Verbalizations/Mental Status: []Client alert and oriented, casually dressed and groomed. Eye contact fair. Motor activity appropriate. Speech within normal limits. Affect constricted, mood depressed. Thoughts linear, logical, no signs of hallucinations or delusions. Client Response/Progress/Benefit: []Client responded well to session AEB participating in activity and listening to discussion. Client connected with the discussion about how distorted thought patterns can reinforce mental health symptoms. Client worked with the group on defining the various types of cognitive distortions and identifying how each distortion can negatively impact mental health. Client was quiet during session, but he appeared to connect with peers as shown by his nodding. Client acknowledged that replacing distorted thoughts will take time and effort. Client worked with his small group as they practiced thought challenging by identifying distortions and replacing them with more realistic statements. Client attentive during psychoeducation on strategies to combat distortions. Client selected the strategy T.H.I.N.K to help client combat distorted thoughts. Appeared to benefit from increasing awareness of cognitive distortions and practicing thought challenging. Client?s first day of IOP. Will continue to prevent decompensation, reduce intensity of symptoms, and improve mood stability. Narrative Note: []
--- NOTE | 2019-02-05 15:14 | BH.COMM ---
Communication Note - Communication with Client Communication Note: Completed intake paperwork with client today. Completed the [place] Suicide Severity Scale (CSSR-S) Lifetime Recent to assess for suicidal risk. Client reports a history of one previous suicide attempt occurring in 2011 in which pt attempted to Overdose following the of his . Client reported he was placed on the inpatient psychiatric floor at [facility] at that time. Reports he does not have a history of any other prior attempts. Denies history of impulsive or self-harming behaviors. Client reports passive wishes of or not waking up earlier this month but denies any thoughts in the past week. Denies suicidal ideations in the past week. Client reported he has had suicidal thoughts in his lifetime, but no intent since he attempted in 2011. Per the CSSR-S client presents as a moderate to high risk for suicide, but he does report an ability to maintain safety at this time, is willing to seek help if needed, and indicates his family as his reason for living. Client's suicidal lethality will be continued to monitored throughout the program. Client denies access to any weapons. Client feels able to maintain safety, agreeable to call 911 or go to nearest emergency room if feels unable to maintain safety.
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
--- NOTE | 2019-02-07 13:23 | BH.DR.ITP ---
Initial Treatment Plan - Patient Information Visit Information: ADMISSION DATE: EXPECTED LOS: 4-6 weeks - Problems/Symptoms Problem #1:: Depression Symptom:: sadness, rumination, worthlessness, anhedonia Problem #2:: Anxiety Symptom:: worrying, panic attacks, fear of being in crowded spaces
--- NOTE | 2019-02-08 09:10 | BH.SGPN.GN ---
Behaviors/Verbalizations/Mental Status: []Client alert and oriented, casually dressed and groomed. Eye contact good. Motor activity appropriate. Speech within normal limits. Affect constricted, mood euthymic. Thoughts linear, logical, no signs of hallucinations or delusions. Reviewed client?s symptom tracker, no risk for suicidal ideation, plan, or intent. Client Response/Progress/Benefit: []Pt was an engaged participant as evidenced by pt sharing thoughts and feelings during check-in and listening attentively to peers. Pt stated one positive this week was being able to say no when he was offered alcohol. Pt stated he chose to not drink because he thought about what it would do to his family and doesn't want to experience the side effects of drinking while on the medication Vivatrol. Pt did not identify any current stressors. Progress noted in pt ability to say no when given opportunity to relapse on alcohol. Continued IOP tx recommended to increase healthy coping skills, decrease depressive symptoms, and prevent decompensation. Narrative Note: []
--- NOTE | 2019-02-08 10:16 | BH.SGPN.GN ---
Behaviors/Verbalizations/Mental Status: []Client alert and oriented, Disheveled appearance. Eye contact fair-falling asleep at times. Motor activity appropriate. Speech within normal limits. Affect constricted, mood dysthymic. Thoughts linear, logical, no signs of hallucinations or delusions. Client Response/Progress/Benefit: []Client responded mostly well to session, falling asleep at times, but also engaged. Client agreed with peers that self-care is important, and he was often nodding. Client listened as the group discussed the benefits of self-care and the barriers that have prevented clients from prioritizing self-care. Client participated in the discussion of the common myths about self-care including self-care is selfish, means neglecting and avoiding life, means weakness, is pampering self, and always fun. Client participated in the discussion and debunking of these myths. Client seemed to benefit from increased awareness of the importance of self-care and challenging common myths that prevent clients from making time for self-care. Client?s first week of IOP. Client is often quiet, but attentive during sessions and appears to be connecting with peers. Will continue IOP tx to prevent decompensation and learn healthy coping skills. Narrative Note: []
--- NOTE | 2019-02-08 11:16 | BH.SGPN.GN ---
Behaviors/Verbalizations/Mental Status: []Client alert and oriented, disheveled appearance. Eye contact fair. Motor activity appropriate. Speech within normal limits. Affect constricted, mood dysthymic. Thoughts linear, logical, no signs of hallucinations or delusions. Client Response/Progress/Benefit: []Client receptive of session, actively listening, though provided limited input to discussion. Willing to complete worksheet activity. Listened as the group further processed the activity and connected with the importance of self-care in maintaining mental health and preventing burn-out. Client completed self-assessment activity on the different areas of self-care and was able to identify current practices he uses. Client reported he can improve his physical self-care. Client set a goal to improve in the area of physical self-care. Client?s goal is to walk two miles a day. Client reported this is realistic for him and it will help improve client?s mood. Client appeared to benefit from increasing awareness of how he can improve his self-care balance. Client?s first week of IOP, no progress to document at this time. Will continue IOP level of care to prevent decompensation and improve emotional regulation skills. Narrative Note: []
--- NOTE | 2019-02-08 14:31 | BH.MDN_ITS ---
Multi-Disciplinary Note - Note 30-min Individual Time Started:: 12:16 Date: 02/08/19 Purpose of session/treatment goals addressed:: The purpose of today's session was to gather information from client regarding current symptoms, thoughts, and stressors impacting functioning. Another purpose was discuss Client expectations and establish treatment goals. Eye Contact:: Fair Motor Activity:: Appropriate Appearance:: Disheveled - distinct odor, Casual Mood:: Anxious, Depressed Affect:: Congruent Thoughts:: Linear, Logical, No evidence of hallucinations/delusions noted Staff Interventions:: Therapist asked open-ended questions to elicit information regarding current symptoms, stressors, and related mental health hx. Provided empathic responses and supportive feedback as client discussed trauma hx impacting mental health and ability to function at baseline. Therapist also a pplied ME techniques to aide client in exploring potential treatment goals while in the Intensive Outpatient Program. Assessed for safety. Client Response:: Client was receptive to session, openly discussed factors leading to recent exacerbation of mental health symptoms and difficulties functioning at baseline. Client expressed a majority of his mental health symptoms have been the result of ineffective means for coping with trauma triggers around anniversary dates. Pt went on to discuss experiencing three major losses in [id number] when both his parents and his . He indicated ?I just haven?t been able to deal since, everything has just spiraled?. Discussed that since the loss of his he has relied primarily on substance use via drinking alcohol to numb his emotions and avoid coping with his grief; however, indicates a desire to begin coping with his trauma and learning skills to better process and manage his emotions. Pt indicated that he has been hospitalized for suicidal ideation 3 times in the past decade due to increased difficulties coping with triggers around the time his and parents passed. Pt expressed wanting to ?feel like my old self again? and he indicated he has not truly ?felt like myself? in years. Noted he has not been able to engage in activities he previous found enjoyable such as hunting and bowling, and often feels as though he is ?just going through the motions? in his own life. Reports decline in ability to manage mental health sx has impacted his ability to function at baseline, resulting in difficulties sustaining employment, increased passive thoughts of leading to recent hospitalization, unhealthy means of coping such as substance use and avoidance, irritability and impulsivity, lack of motivation, hopelessness, apathy, and low self-worth. Client reports he would like to work on mood stability, improve self-esteem, and increase ability to cope with trauma triggers in order to reduce impact on mental health and better manage depressive sx. Client reports being hopeful about the program as he has already found the information learned to be beneficial. Risks/Concerns:: Client denies active Si, plan, or intent as of this date, 02/08/19. He does however report increased chronic passive thoughts of this time of year as it coincides with past trauma dates. Client reports hx of alcohol abuse and has had higher levels of SI when under the influence of substance, however is currently 27 days sober, denies any urges or desire to relapse and is regularly attending weekly AA meetings. Reports willingness to begin working with therapist on creating trigger action plan. Client indicates ability to maintain safety at this time and indicates a willingness to reach out to supports and/or local crisis services if feeling unable to maintain safety. Progress Toward Goals/Plan:: Client new to treatment in IOP and is therefore unable to make much progress yet. He reports he would like to work on coping skills for managing PTSD related triggers, decrease depression, and improve motivation to engage in activities he used to enjoy. Recommended continued IOP tx to maintain safety, reduce mh sx, and promote healthy change behaviors. Time Stopped:: 12:38
--- NOTE | 2019-02-08 15:31 | BH.MTP_ITS ---
[facility] - Patient Information Program Physician:: Dr. Cici Shah Primary Therapist:: JARED Lopez - Psychiatric Diagnoses Psychiatric Diagnoses:: Bipolar 1 disorder, most recent episode depression, severe without psychosis; PTSD; generalized anxiety disorder; alcohol use disorder Diagnosis Code(s):: F 31.4 - Estimated LOS Estimated LOS (in weeks):: 6 Problem/Goal #1 - Problem/Goal #1 Stated Goal:: Client will reduce depression, feelings of hopelessness, and suicidal ideation through Intensive Outpatient Program. Description of Barriers: Client reports history of trauma from childhood as well as related to his ?s in 2008. Pt reports guilt related to the of his which significantly impact his sense of self-worth and mental health. Client has a hx of impulsivity related to bipolar 1 diagnosis in which pt has had issues with not sleeping for days at a time as well as increased energy. Reports no recent arielle sx. Hx of unspecified learning disability while in high school, which he believes may have been ADD. This could potentially impact pt initial ability to retain information discussed in treatment; however with additional coaching and discussion he is expected to make progress towards mental health goals. Reports hx of problematic drinking behaviors following the of his which resulted in pt receiving a DUI in the past, need for alcohol related counseling, increased SI while intoxicated. Pt reports he is currently 17 days sober. Pt is engaged and lives with his regina and her two children. He indicates the relationship is supportive but that they struggle to meet financial responsibilities. Pt is currently unemployed and reports he has had difficulties in sustaining employment due to mh related sx. Pt reports that current stressors include; financial stress, lack of social support, hx of impulsivity, feelings of hopelessness, worthlessness, difficulties managing his emotions, and lack of motivation, lack of concentration, overwhelming guilt, intrusive thoughts, and difficulties in managing PTSD related triggers. Client reports limited awareness of warning signs and triggers. Client endorses numerous distorted thoughts that reinforce mental health symptoms and cause interpersonal relationship issues. Functional Impact: Client is a 38-year-old male with a history of Bipolar 1 Disorder, PTSD, anxiety, and alcohol use disorder. Client was referred to IOP by Norma following inpatient hospitalization from January 11 ? due to increased suicidal ideation with plans to jump in traffic. Pt denies acitive intent and reports being under the influence of alcohol at that time. Pt reports his mental health has been decompensating steadily since his ?s in 2008. He indicates experiencing significant increase in sx of depression and anxiety, worsening feelings of guilt, and passive thoughts of as a result. Since that time pt reports turning to alcohol as primary means of coping, drinking a 24 pack/ day when use was at it?s worst and approximately 5 beers per day before stopping use approximately 17 days ago. Pt reports 6 psychiatric inpatient hospitalizations since 2008, 3 of which occurred in the past 6 months. He has had one prior suicide attempt, occurring in 2011 in which pt attempted overdose. Denies any attempts since, but has had chronic passive thoughts of with vague plans to OD or jump in traffic. Reports passive thoughts had been increasingly worse prior to most recent hospitalization on 01/11/19. Shared currently experience fleeting thoughts of about once per week. Reports that in the past 6 months he has had increasing difficulties in functioning at baseline which has resulted in pt inability to sustain employment and is currently unemployed. Client currently endorses a depressed mood, lack of energy, lack of concentration, lack of motivation, avoidance behaviors, increased sx of social anxiety, rumination, emotional dysregulation, feeling numb, lack of connection with others, and difficulties with sleep. Client's symptoms are interfering with his social, occupation, and familial functioning. Goal Relevant Strengths/Supports: Client presents as a kind, resilient, and hopeful to improve his mental health. Client has shown ability to continue to reach out to supports despite experiencing significant loss in the past which presents as a protective factor for treatment. Client has strong family support from his fianc? and brother. Client is currently receiving substance abuse counseling and attending regular AA appointments to maintain sobriety. - Objectives Objective #1 Stated Objective: Identify at least 2-3 negative self-talk messages used to reinforce depression and feelings of worthlessness and replace thoughts with positive messages. Interventions: Therapist will help client identify distorted, negative beliefs about self and replace with more realistic, affirmative messages. Discharge Criteria: Client will have achieved this goal when can verbalize at least 2 distorted thought patterns which contribute to negative self-talk messages and effectively replace those thoughts with affirmative messages. Target Date: 03/19/19 Review Date: 03/05/19 Objective #2 Stated Objective: Client will learn and utilize 2-3 healthy coping strategies to manage depressive symptoms. Interventions: Therapist will assist client in learning internal coping strategies to manage depressive symptoms, along with helping client identify triggers. Discharge Criteria: Client will have achieved this goal when can verbalize and has practiced at least 2 healthy coping strategies Target Date: 03/19/19 Review Date: 03/05/19 Problem/Goal #2 - Problem/Goal #2 Stated Goal:: Stabilize anxiety level while increasing ability to function and decreasing ruminative thoughts on a daily basis through Intensive Outpatient Program. Description of Barriers: Client reports history of trauma from childhood as well as related to his ?s in 2008. Pt reports guilt related to the of his which significantly impact his sense of self-worth and mental health. Client has a hx of impulsivity related to bipolar 1 diagnosis in which pt has had issues with not sleeping for days at a time as well as increased energy. Reports no recent arielle sx. Hx of unspecified learning disability while in high school, which he believes may have been ADD. This could potentially impact pt initial ability to retain information discussed in treatment; however with additional coaching and discussion he is expected to make progress towards mental health goals. Reports hx of problematic drinking behaviors following the of his which resulted in pt receiving a DUI in the past, need for alcohol related counseling, increased SI while intoxicated. Pt reports he is currently 17 days sober. Pt is engaged and lives with his regina and her two children. He indicates the relationship is supportive but that they struggle to meet financial responsibilities. Pt is currently unemployed and reports he has had difficulties in sustaining employment due to mh related sx. Pt reports that current stressors include; financial stress, lack of social support, hx of impulsivity, feelings of hopelessness, worthlessness, difficulties managing his emotions, and lack of motivation, lack of concentration, overwhelming guilt, intrusive thoughts, and difficulties in managing PTSD related triggers. Client reports limited awareness of warning signs and triggers. Client endorses numerous distorted thoughts that reinforce mental health symptoms and cause interpersonal relationship issues. Functional Impact: Client is a 38-year-old male with a history of Bipolar 1 Disorder, PTSD, anxiety, and alcohol use disorder. Client was referred to IOP by Norma following inpatient hospitalization from January 11 ? due to increased suicidal ideation with plans to jump in traffic. Pt denies acitive intent and reports being under the influence of alcohol at that time. Pt reports his mental health has been decompensating steadily since his ?s in 2008. He indicates experiencing significant increase in sx of depression and anxiety, worsening feelings of guilt, and passive thoughts of as a result. Since that time pt reports turning to alcohol as primary means of coping, drinking a 24 pack/ day when use was at it?s worst and approximately 5 beers per day before stopping use approximately 17 days ago. Pt reports 6 psychiatric inpatient hospitalizations since 2008, 3 of which occurred in the past 6 months. He has had one prior suicide attempt, occurring in 2011 in which pt attempted overdose. Denies any attempts since, but has had chronic passive thoughts of with vague plans to OD or jump in traffic. Reports passive thoughts had been increasingly worse prior to most recent hospitalization on 01/11/19. Shared currently experience fleeting thoughts of about once per week. Reports that in the past 6 months he has had increasing difficulties in functioning at baseline which has resulted in pt inability to sustain employment and is currently unemployed. Client currently endorses a depressed mood, lack of energy, lack of concentration, lack of motiva tion, avoidance behaviors, increased sx of social anxiety, rumination, emotional dysregulation, feeling numb, lack of connection with others, and difficulties with sleep. Client's symptoms are interfering with his social, occupation, and familial functioning. Goal Relevant Strengths/Supports: Client presents as a kind, resilient, and hopeful to improve his mental health. Client has shown ability to continue to reach out to supports despite experiencing significant loss in the past which presents as a protective factor for treatment. Client has strong family support from his fianc? and brother. Client is currently receiving substance abuse counseling and attending regular AA appointments to maintain sobriety. - Objectives Objective #1 Stated Objective: Work with client to develop a PTSD ?crisis plan? which includes emergency telephone numbers, 3-4 coping strategies for trauma triggers, lists of supports, positive aspects of life, and motivations. Work with client to identify 3-4 sources or triggers to PTSD to increase insight. Identify 3 effective thought-stopping skills to utilize. Interventions: Therapist will provide educational handouts on PTSD that explain its features and development. Will help pt. explore symptoms and helpful coping skills for intrusive thoughts. Therapist will provide list of crisis phone numbers. Therapist will work with client to identify effective coping strategies and steps to take in time of mental health crisis. Discharge Criteria: Pt will be able to identify common symptoms of PTSD and ways to cope with intrusive memories. Client will have achieved this goal once he completes his safety plan and is able to utilize coping and thought replacement strategies Target Date: 03/19/19 Review Date: 03/05/19
--- NOTE | 2019-02-09 09:10 | BH.SGPN.GN ---
Behaviors/Verbalizations/Mental Status: [] Eye contact is good. Motor activity is appropriate. Appearance is casual. Speech is Appropriate. Mood is depressed. Affect is flat. Thoughts are linear and logical. No evidence of psychosis. Reviewed daily check in sheet and no reports of suicidal ideations or intent. Client Response/Progress/Benefit: [] Pt spoke when prompted. Attentive at times. Appeared drowsy this AM. Emotion for today is stressed. Noted some mental health wins stating that he is starting to feel more comfortable opening up in the IOP program. Talked very briefly about this year being difficult as it is 10 years since he lost his . While he admits to pushing himself to get her he is proud that he is following through. Progress noted per pt report. Benefited from group support and encouragement. Will continue in IOP to maintain safety , prevent decompensation, and stabilize mood. Narrative Note: []
--- NOTE | 2019-02-09 10:18 | BH.SGPN.GN ---
Behaviors/Verbalizations/Mental Status: [Client alert and oriented, casually dressed, grooming fair. Eye contact fair. Motor activity appropriate. Speech within normal limits. Affect congruent, mood anxious and depressed. Thoughts linear, logical, no signs of hallucinations or delusions. ] Client Response/Progress/Benefit: [Client a semi-active participant AEB active engagement in group activity and listening during group discussion. Client provided limited input to discussion though nodding throughout and at times taking notes, willing to participate in small group reflection. He shared relating to the definition of resilience provided by the group and was attentive during discussion on connections between activity and barriers/supports to development of a resilient lifestyle. Client agreed with peers that one can learn to become more resilient throughout life. Client benefitted from brainstorming benefits of being resilient which included: increased self-confidence, increased hope in the face of setbacks, and willingness to continue to work towards new goals. Client is progressing with increased willingness to engage in treatment process and is learning skills to begin applying outside treatment environment. Recommended continued IOP tx to decrease depression and anxiety, improve use of healthy coping skills, as well as prevent decompensation.] Narrative Note: []
--- NOTE | 2019-02-09 11:20 | BH.SGPN.GN ---
Behaviors/Verbalizations/Mental Status: []Client alert and oriented, casually dressed and groomed. Eye contact fair. Motor activity appropriate. Speech within normal limits. Affect congruent to topic being discussed, mood depressed. Thoughts linear, logical, no signs of hallucinations or delusions. Client Response/Progress/Benefit: []Client passive participant as evidenced by client providing limited input throughout discussion and listening attentively to peers. Client worked cooperatively with peers to identify how each resiliency component can help increase resiliency. Client reported he wants to work on the resiliency component of taking care of himself. Client stated he struggles with remembering to take his medications consistently, which he recognizes negatively impacts his mental health. Client reported to start working on taking care of himself he will set an alarm to remind him to take his medications. Client appeared to benefit from identifying goal to improve personal resilience factors. Client to continue IOP to learn healthy coping skills, decrease negative thought patterns, and prevent decompensation. Narrative Note: []
--- NOTE | 2019-02-12 09:02 | BH.SGPN.GN ---
Behaviors/Verbalizations/Mental Status: []Client alert and oriented, neatly dressed and groomed. Eye contact good. Motor activity appropriate. Speech within normal limits. Affect congruent, mood anxious. Thoughts linear, logical, no signs of hallucinations or delusions. Reviewed client?s symptom tracker, no risk for suicidal ideation, plan, or intent as of 02/12/19. Client Response/Progress/Benefit: []Client responded well to session quiet, but participating when prompted. Client reports feeling ?stressed? today. Client stated he is stressed because he and his fianc? cannot get their children to clean their rooms. Client reported he is kind of a ?neat freak? but he also understands that he may have to reevaluate his expectations. The group offered client advice on how to communicate with teenagers. Client?s mental health win is that he has started journaling again and he began walking. Appeared to benefit from receiving supportive statements from peers and reflecting on his application of coping skills. Progress noted as client has been learning new coping skills. Will continue IOP tx to prevent decompensation, maintain sobriety, and decrease anxiety.? Narrative Note: []
--- NOTE | 2019-02-12 10:14 | BH.SGPN.GN ---
Behaviors/Verbalizations/Mental Status: []Client alert and oriented, casually dressed and groomed. Eye contact good. Motor activity appropriate. Speech within normal limits. Affect constricted, mood depressed. Thoughts linear, logical, no signs of hallucinations or delusions. Client Response/Progress/Benefit: []Pt was an passive participant in group discussion. Listened attentively to peers. Group discussed the MH benefits to having open and clear communication with support and providers. Group discussed the barriers that tend to impact clear and open communication which include: making assumptions, communicating with behavior, non-verbal communication, tone of voice, and misinterpretation. Pt was attentive during psycho-education on communications styles (aggressive, passive, passive-aggressive, and assertive). Also listened to group input on the pros and cons to each communication style. Pt seemed to benefit from increased insight on how communicate style impacts mental health. Pt to continue IOP level of care to increase healthy coping skills, identify and challenge distorted thoughts, and prevent decompensation. Narrative Note: []
--- NOTE | 2019-02-15 09:57 | BH.MDN_ITS ---
Multi-Disciplinary Note - Note 30-min Individual Time Started:: 09:20 Date: 02/15/19 Purpose of session/treatment goals addressed:: The purpose of this session was to assess current symptoms, stressors, and progress towards treatment goals. Another purpose was to work with client to identify trauma related triggers that have resulted in increased urges to drink and impact client mental health, review healthy means for coping with identified triggers, as well as complete a trigger action plan to utilize when experiencing a trauma related trigger. Eye Contact:: Good Motor Activity:: Appropriate Appearance:: Casual Speech:: Appropriate Mood:: Depressed Affect:: Congruent Thoughts:: Linear, Logical, No evidence of hallucinations/delusions noted Staff Interventions:: Therapist asked open-ended and furthering questions to elicit information regarding pt current sx, stressors, and tx progress. Provided empathic responses and supportive feedback. Applied IN techniques to aid pt in identifying healthy change behaviors to improve mental health sx and functioning. Assisted pt in completing trigger action plan aimed at identifying warning signs and triggers that increase desire to drink, as well as identifying healthy supports and coping skills to prevent relapse. Provided pt with local resources for grief counseling. Client Response:: Pt receptive of session and willing to engage throughout. Discussed feeling a little off this morning as transportation was 15 minutes late picking him up which he found to be stressful and increased anxiety as a result. Reports that he has been able to calm down some since arriving to group. Pt went on to discuss current stressors further impacting anxiety and depression levels to include ongoing financial difficulties and the upcoming anniversary of his mother's this weekend. He shared fears he will struggle to cope as for the past several years he has relied on alcohol to numb himself and prevent from having to cope with his emotions. Pt reports wanting to make healthier choses for himself this year and actually cope with his grief rather than avoid it or resort to unhealthy outlets. Expressed that he has made too much progress in his sobriety to relapse now and went on to discuss a recent experience in which he overcame an urge to drink when placed in the bar seating area at while out to dinner with his fiance and brother. Open to spending a large duration of the session completing a trigger action plan aimed at identifying warning signs and triggers for client to pay attention to this weekend that may lead him to drink if not addressed. Action plan additionally included a variety of self-identified coping strategies for triggers and improving ability to manage urges. 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 Additional skills included listening to buddhism pop music, going for a walk, and doing a crossword to help focus on something else if tempted ot drink. Pt additionally created a personal mantra to motivate himself and remind himself that he is able to cope in healthy ways and can successfully manage stressors without drinking. Reviewed plan ot attend confucianist on tuesday and spend time with friends/family in order to prevent from engaging in unhealthy coping outlets on anniversary date. Risks/Concerns:: No immediate risks or concerns. Denies any active suicidal ideations, plan, or intent as of this date 02/16/19. Pt willing to safety plan for upcoming trauma anniversary dates and indicates ability to maintain safety at this time. Protective factor is his family. Reports willingness to seek crisis services if feeling unable to maintain safety at anytime. Progress Toward Goals/Plan:: Progress noted. Pt reports he is over 30 days sober and is beginning to see improvements in mental health coping ability as a result. Pt continues to be willing to engage in tx process and is willing to apply skills learned. He did well to safety plan for upcoming trauma trigger and was able to identify potential warning signs and triggers which displays insight. Pt continues to report high levels of anxiety and deoression, specifically in social settings as well as limited motivation. Recommended continued IOP tx to reduce depressive sx, maintain sobriety, and increase ability to function at baseline, as well as prevent decompensation. Time Stopped:: 09:47
--- NOTE | 2019-02-15 10:20 | BH.SGPN.GN ---
Behaviors/Verbalizations/Mental Status: []Client alert and oriented, casually dressed and groomed. Eye contact fair. Motor activity appropriate. Speech within normal limits. Affect congruent to topic being discussed, mood depressed. Thoughts linear, logical, no signs of hallucinations or delusions. Client Response/Progress/Benefit: []Pt passive participant AEB pt providing limited input however, appeared to listen attentively to peers. Pt participated in group discussion regarding mental health benefits of change. Pt identified three small personal changes to improve mental health as: filing for disability to help reduce stress, making small goals, and losing weight to increase his self-confidence and physical health. Identified current barriers keeping pt from making those changes to be: no motivation and not being ready to take action with the identified changes. Pt appeared to benefit from gaining awareness of personal changes that would improve mental health and the barriers keeping client stuck. Continue IOP to increase healthy coping skills, decrease isolation, and prevent decompensation. Narrative Note: []
--- NOTE | 2019-02-15 11:18 | BH.SGPN.GN ---
Behaviors/Verbalizations/Mental Status: [Eye contact is fair to good. Motor activity is appropriate. Appearance is casual. Speech is Appropriate. Mood is depressed, anxious. Affect is congruent. Thoughts are linear and logical. No evidence of psychosis. ] Client Response/Progress/Benefit: [Pt did well to encourage and support fellow participants during group activity, despite feeling too anxious to participate in the challenge activity itself. Pt was willing to engage in discussion regarding making positive mental health changes, though remained a mostly passive participant throughout. Pt actively listened and nodding during the discussion in which group members worked to identify connections between activity and strategies for overcoming barriers to making mental health changes. He noted that fear and unhealthy habits can be a barrier to ?turning over a new leaf? in personal life. Pt initially struggled to identify a specific change he would like to make for her mental health, though with assistance from group and this therapist did well to do so. Shared he would like to work on improving ability to make small daily mental health goals. Discussed that this change would help to increase motivation and prevent unhealthy coping behaviors. Pt benefited from working with group to identify strategies to overcome barriers to change and create a plan for implementing one small change promoting personal growth. Pt recommended to continue IOP tx to increase anxiety management skills, improve social support network, decrease depression, maintain sobriety and prevent decompensation.] Narrative Note: []
--- NOTE | 2019-02-16 09:05 | BH.SGPN.GN ---
Behaviors/Verbalizations/Mental Status: [] Eye contact is good. Motor activity is appropriate. Appearance is casual. Speech is Appropriate. Mood is anxious. Affect is congruent. Thoughts are linear and logical. No evidence of psychosis. Reviewed daily check in sheet and no reports of suicidal ideations or intent. Client Response/Progress/Benefit: [] Pt participated when prompted. Emotion for today is blah. Notes that this is mainly due to anniversary of his mother's which is this weekend. This gets him thinking about her and his . Was able to identify some positive stating that he feels that his communication with his fiance has improved. Also reports increased energy and motivation. Benefits from group support and encouragement. His check-ins and engagement in process group is limited. Will continue with IOP to prevent decompensation, provided support, maintain safety, and decrease frequency of inpatient admissions. Narrative Note: []
--- NOTE | 2019-02-16 11:25 | BH.SGPN.GN ---
Behaviors/Verbalizations/Mental Status: []Client alert and oriented, casually dressed and groomed. Eye contact good. Motor activity appropriate. Speech within normal limits. Affect flat, mood depressed. Thoughts linear, logical, no signs of hallucinations or delusions. Client Response/Progress/Benefit: []Client responded well to session, engaged throughout and taking notes during group brainstorming. Client appeared to connect with the activity from second group and helped the group identify benefits of having a strong foundation of internal and external coping skills. Client listened as the group discussed the different categories of coping skills and provided examples. Client agreed with peers that it is important to have a variety of coping skills. Client created a coping skills ?menu? for the five categories of coping skills. Client selected watching a movie, exercise, 5-senses, positive self-talk, and deep breathing. Client appeared to benefit from increasing his repertoire of healthy coping skills. Progress limited as client is often quiet during group sessions and does not share about his personal application of coping skills. Will continue IOP tx to prevent decompensation and improve mood stability. Narrative Note: []
--- NOTE | 2019-02-16 20:00 | BH.SGPN.GN ---
Behaviors/Verbalizations/Mental Status: [] Eye contact is good. Motor activity is appropriate. Appearance is casual. Speech is Appropriate. Mood is depressed. Affect is flat. Thoughts are linear and logical. No evidence of psychosis. Client Response/Progress/Benefit: [] Pt was attentive during group discussion and was an active participant in group activity. Attentive during psycho-education. Worked with peers to define coping skills which included; skills to use to get us through difficult times, techniques to manage emotions, and reactions to lessen an emotional state. Group also worked together to identify how we learn our coping skills through up-bringing, habits, watching our support, trial/error, TV, and counseling. Group discussed that not all coping skills are healthy and identified common unhealthy coping skills such as; isolating, avoidance, substance abuse, using anger as a release, self-harm, reassurance-seeking, sleep, eating, and negative self-talk. Pt participated in group activity with peers. After the group they related the activity to coping skills stating that when developing coping skills it is important to have both internal and external coping skills to help. Pt benefited from increased insight and education on healthy vs unhealthy coping and internal vs external coping skills. Narrative Note: []
--- NOTE | 2019-02-19 09:05 | BH.SGPN.GN ---
Behaviors/Verbalizations/Mental Status: [Eye contact is fair to good. Motor activity is appropriate. Appearance is casual. Speech is Appropriate rate and tone. Mood is anxious, euthymic. Affect is congruent. Thoughts are linear and logical. No evidence of psychosis. Reviewed daily check in sheet and pt denies any active SI, plan, or intent. ] Client Response/Progress/Benefit: [Pt responded well to session, engaged throughout and open to processing with the group. Pt indicated current emotion as ?stressed? and discussed that this is because the Holidays have traditionally been a difficult time for him and often trigger trauma related memories. He expressed that he would usually resort to drinking alcohol rather than coping in healthy ways and was able to make it through the weekend without doing so. Pt did well to identify this as a mental health win and shared using hid supports as well as positive self-talk to do so without engaging in maladaptive coping behaviors. Additional win identified as setting aside time to spend with his children which he found helped with further improving overall mood. Pt appeared to benefit from support and structure of group environment. Expressed connecting with fellow participants struggling with similar stressors. Pt continues to make progress in reaching out to supports for help when needed and is recommended continued IOP tx to prevent decompensation, decrease depression, and promote ongoing application of healthy coping skills.] Narrative Note: []
--- NOTE | 2019-02-19 10:10 | BH.SGPN.GN ---
Behaviors/Verbalizations/Mental Status: []Client alert and oriented, neatly dressed and groomed. Eye contact fair-closing his eyes at times. Motor activity appropriate. Speech within normal limits. Affect constricted, mood euthymic. Thoughts linear, logical, no signs of hallucinations or delusions. Client Response/Progress/Benefit: []Client responded mostly well to session, taking notes, but quiet throughout session. Client appeared to connect with the group topic of crisis AEB nodding. Group identified examples of potential crisis to include unexpected loss, , and hardships out of one?s control. Connected with discussion on how coping with external crisis by using unhealthy coping skills could lead to personal crisis. Group identified unhealthy coping skills to include; substance use, unhealthy relationships, not eating, avoidance, outbursts, and risk-taking behaviors. Group identified warning signs for crisis which included; isolating, loss of functioning, not finding nas in life, and self-harm. Client completed the personal warning signs worksheet and identified crisis warning signs to include; loss of motivation, and substance abuse. Benefited from group by increasing awareness of crisis and personal warning signs. Client is often quiet during group, but he appears to be generalizing healthy coping skills AEB his report of not drinking over the weekend. Will continue IOP tx to reduce depression and improve mood stability. Narrative Note: []
--- NOTE | 2019-02-19 16:42 | BH.MDN ---
Multi-Disciplinary Note - Note 30-min Individual Time Started:: 11:32 Date: 02/19/19 Purpose of session/treatment goals addressed:: Purpose of this session was to assess current symptoms, stressors, and progress towards treatment goals. Another purpose was to discuss ways for pt to increase self-confidence levels and ability to cope when experiencing negative thoughts impacting self-esteem. Eye Contact:: Good Motor Activity:: Appropriate Appearance:: Casual Speech:: Soft Mood:: Anxious, Dysthymic Affect:: Congruent Thoughts:: Linear, Logical, No evidence of hallucinations/delusions noted Staff Interventions:: Therapist asked open-ended and furthering questions to elicit additional information regarding pt current symptoms, stressors, and treatment goal progress. Provided feedback and encouragement as pt discussed strategies used to maintain emotional stability during the recent trauma anniversary. Therapist commended pt on refraining from reverting back to maladaptive coping skills and utilized MT techniques to elicit change behaviors. Provided psychoeducation on opposite action and doing things he is good at in order to improve self-esteem levels and worked with pt to identify confidence building activities. Client Response:: Pt receptive of session, engaged throughout, though indicated feeling ?pretty good? today as he discussed feeling proud of his ability to successfully make it through the anniversary date of his father?s without drinking alcohol or engaging in other maladaptive coping mechanisms. He shared that he been able to avoid being faced with triggers and instead surrounded himself with friends and family, as well as attended several [employer] related functions. 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 Insight regarding importance of involvement in meaningful activities as a means of maintaining sobriety and decreasing depressive sx. Went on to discuss some apprehension regarding plans to visit his fianc??s mother for the as pt indicated the relationship is tense. Pt went on to explain that she does not think pt?s mental health is an acceptable reason not to be working often criticizes him as a result. Pt expressed with impacts his own self-esteem levels and increases use of negative self-talk as a result. Receptive of working with this therapist to identify strategies for identifying and reframing self-deprecating thoughts, as well as increasing self-confidence. Pt expressed plans to go for a walk with his fianc?, play board games with the kids, and use positive affirmations while visiting. Additionally expressed previously being involved in music and found that to be meaningful. 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 Risks/Concerns:: Pt denies active SI, plan, or intent as of this date, 02/19/19. Progress Toward Goals/Plan:: Progress noted. Insight that justifying urges to engage in drinking behaviors may have impacted ability to improve mental health and cope with trauma related stressors in the past. Self-esteem and overall mood appear to be improving AEB pt report of decreased depression and increased use of positive self-talk. Continued reports of maintaining sobriety and applying healthy means for coping with triggers instead. Continues to report difficulties in mood management when faced with triggers or experiencing negative thoughts about himself, however is improving in this area and reports not experiencing as strong of urges to drink. Denies active SI, plan, or intent since beginning IOP. Will continue IOP level of tx to improve use of emotion regulation skills, increase confidence, reduce depression, and maintain stability. Time Stopped:: 11:52
--- NOTE | 2019-02-23 09:05 | BH.SGPN.GN ---
Behaviors/Verbalizations/Mental Status: []Client alert and oriented,casually dressed and groomed. Eye contact fair. Motor activity appropriate. Speech within normal limits. Affect congruent, mood euthymic. Thoughts linear, logical, no signs of hallucinations or delusions. Reviewed client?s symptom tracker, no risk for suicidal ideation, plan, or intent as of 02/23/19. Client Response/Progress/Benefit: []Client responded well to session, attentive and listening to peers. Client reports feeling ?positive? today. Client identified his mental health wins today which included not fighting with his [id number] yesterday at [employer] and not drinking yesterday. Client shared he used deep breathing to prevent him from arguing with is [id number]. Client has been sober since January 11 and client is proud of himself for this. Client shared reminding himself about the support he has in his life helps client maintain sobriety. Client reported he is worried about the holidays because in the past he was not sober. There were several recovering alcohols in the group that provided client with words of encouragement and tips for how to stay sober over the holidays. Client was receptive to feedback and shared this would be helpful. Appeared to benefit from receiving supportive feedback and ideas on how to maintain sobriety. Will continue IOP txt to promote sobriety and increase healthy coping skills. Narrative Note: []
--- NOTE | 2019-02-23 10:10 | BH.SGPN.GN ---
Behaviors/Verbalizations/Mental Status: []Client alert and oriented, casually dressed and groomed. Eye contact good. Motor activity appropriate. Speech within normal limits. Affect congruent, mood euthymic. Thoughts linear, logical, no signs of hallucinations or delusions. Client Response/Progress/Benefit: []Pt showed increased engagement compared to previous group sessions AEB pt providing increased input during group discussion. Shared insight on quote of the day. Group worked together to define goals and identify the benefits of developing goals which included: sense of purpose, can measure progress, learn from goals, keeps you moving forward, increases confidence, and increases motivation. Group also identified barriers to setting and accomplishing goals which include: no motivation, self-doubt, depression, feeling lost, and unrealistic expectations. Attentive during education on developing SMART goals. Pt stated Benefited from increase awareness of goal-setting methods. Will continue in IOP to prevent decompensation, maintain sobriety, and improve emotional regulation. Narrative Note: []
--- NOTE | 2019-02-23 11:11 | BH.SGPN.GN ---
Behaviors/Verbalizations/Mental Status: [Client alert and oriented, casually dressed and fair grooming. Eye contact fair. Motor activity appropriate. Speech within normal limits. Affect constricted, mood anxious and dysthymic. Thoughts linear, logical, no signs of hallucinations or delusions. ] Client Response/Progress/Benefit: [Pt attentive throughout though mostly quiet throughout, contributed some to discussion and ask for help as needed. Experience some difficulties in completing SMART goal prompt though engaged in working with this therapist to create own mental health SMART goal. Pt identified goal is to decrease negative self-talk by saying 3 positive things about himself daily over the next week. Pt reported this goal will benefit him by increasing self-esteem levels. Pt identified potential barriers to accomplishing goal to include: feeling like he doesn?t have time and not believing positives. Pt reported he will overcome barriers by using supports, setting reminders, and continuing to go to therapy. Seemed to benefit from identifying a SMART goal and coming up with strategies to overcome potential barriers. Pt to continue IOP to increase consistent application of healthy coping skills, decrease depression and anxiety, maintain gains, and prevent decompensation.] Narrative Note: []
== END 2019-02-24 23:59 ==
LOC: BHIOP 09:00
PROVIDERS: Family Provider Student in an Organized Health Care Education/Training Program; PCP Student in an Organized Health Care Education/Training Program; Referring Provider Psychiatry & Neurology Psychiatry; Visit Provider Psychiatry & Neurology Psychiatry
DX: F31.4 Bipolar disorder, current episode depressed, severe, without psychotic features (principal); F43.10 Post-traumatic stress disorder, unspecified; F41.1 Generalized anxiety disorder; Z72.89 Other problems related to lifestyle; I10 Essential (primary) hypertension; G43.909 Migraine, unspecified, not intractable, without status migrainosus; Z79.899 Other long term (current) drug therapy
CPT/HCPCS: 90792; H0035; H2012; H2020; 90832

== ENCOUNTER 2019-02-26 09:00 | Outpatient (RCR) | payer MEDICAID, SELFPAY ==
--- NOTE | 2019-02-26 09:04 | BH.SGPN.GN ---
Behaviors/Verbalizations/Mental Status: [Eye contact is fair, at times appearing to dose off. Motor activity is slowed. Appearance is casual. Speech is Appropriate rate and tone. Mood is dysthymic. Affect is congruent. Thoughts are linear and logical. No evidence of psychosis. Reviewed daily check in sheet and pt denies any active SI, plan, or intent. ] Client Response/Progress/Benefit: [Pt receptive of session, struggle to engage throughout as pt appeared to be falling asleep at various moments in group. Was able to return attention with prompt, however expressed not wanting to participate in processing portion of session. Pt appearing to benefit from support and structure of group environment. Pt progress limited given pt difficulties in actively engaging in tx process. Pt recommended continued IOP tx to prevent decompensation, decrease depression and anxiety, and promote application of healthy coping skills.] Narrative Note: []
--- NOTE | 2019-02-26 10:15 | BH.SGPN.GN ---
Behaviors/Verbalizations/Mental Status: [] Eye contact is good. Motor activity is appropriate. Appearance is casual. Speech is Appropriate. Mood is anxious. Affect is congruent. Thoughts are linear and logical. No evidence of psychosis. Client Response/Progress/Benefit: [] Limited participation in group discussion however was attentive during group discussions. Active during group participation. Group worked together to identify several definitions which included; something that you continuously fall into, engaging in choices that keep us stuck, unexpected dangers, and unforeseen difficulty. Attentive on psycho-education on the impact of how one axel with or manages pitfalls in regards to mental health. Group worked together to identify what keeps us stuck or vulnerable to pitfalls which included; decreased self-awareness, poor self-esteem, unhealthy coping, negative thoughts, being comfortable in the pitfall, fear of change, and self-sabotage. Benefited from increased awareness on the impact that pitfalls can have on mental health. Narrative Note: []
--- NOTE | 2019-02-26 11:18 | BH.SGPN.GN ---
Behaviors/Verbalizations/Mental Status: []Client alert and oriented, neatly dressed and groomed. Eye contact good. Motor activity appropriate. Speech within normal limits. Affect flat, mood depressed. Thoughts linear, logical, no signs of hallucinations or delusions. Client Response/Progress/Benefit: []Client receptive of session, engaged throughout AEB client participating in small group discussion. Processed activity with group and connected it to overcoming personal pitfalls in life. Client completed a worksheet where he identified personal pitfalls impacting mental health progress. Identified pitfalls as: drugs and alcohol, avoidance, and isolation. Client recognized that with awareness and use of healthy coping skills, it is possible to prevent or better manage pitfalls. Client agreed with peers that it takes awareness and self-reflection in order to prevent pitfalls. Attentive during psychoeducation on strategies to overcome pitfalls. Client stated he will work on preventing pitfalls by practicing self-reflection to understand himself more. Benefited from identifying personal pitfalls and strategies to overcome these pitfalls. Progress noted as client reports ongoing sobriety. Will continue IOP tx as client continues to struggle with recognizing warning signs and can further decrease his symptoms. Narrative Note: []
--- NOTE | 2019-03-01 09:08 | BH.SGPN.GN ---
Behaviors/Verbalizations/Mental Status: []Client alert and oriented, casually dressed and groomed. Eye contact fair-on his phone at times. Motor activity appropriate. Speech within normal limits. Affect constricted, mood euthymic. Thoughts linear, logical, no signs of hallucinations or delusions. Reviewed client?s symptom tracker, no risk for suicidal ideation, plan, or intent as of 03/01/19. Client Response/Progress/Benefit: []Client responded well to session, participating when prompted. Client reports feeling ?happy? today as client reports feeling more able to manage stressors. Client stated he was able to use his coping skills this morning when he had taxi issues. Client reported using deep breathing which helped client regulate his anxiety and frustrations. Client stated he has also been working on taking care of himself more often which is another mental health win. Client shared last week he was worried about the holidays as he has not been sober over the holidays for a long time. Client stated now he feels less anxious because he feels more confident and he has plans to keep himself busy. Client?s stressor today is that his fiance?s children ?think I?m a joke? and he wants them to respect him more. Client shared he and his fiance are going to have a conversation with the kids this week. Appeared to benefit from reflecting on his generalization of coping skills. Will continue IOP tx to promote sobriety, increase healthy coping skills, and further decrease depression. Narrative Note: []
--- NOTE | 2019-03-01 09:59 | BH.MDN_ITS ---
Multi-Disciplinary Note - Note 30-min Individual Time Started:: 08:54 Date: 03/01/19 Purpose of session/treatment goals addressed:: Purpose of this session was to assess current symptoms, stressors, and progress towards treatment goals. Another purpose was to discuss ways for pt to increase engagement in healthy, prosocial activities to increase confidence and prevent engagement in maladaptive coping mechanisms. Additional topics included: creation of affirmational statements. Eye Contact:: Good Motor Activity:: Appropriate Appearance:: Casual Speech:: Appropriate Mood:: Anxious, Dysthymic Affect:: Congruent Thoughts:: Linear, Logical, No evidence of hallucinations/delusions noted Staff Interventions:: Therapist asked open-ended and furthering questions to elicit additional information regarding pt current symptoms, stressors, and treatment goal progress. Provided feedback and encouragement as pt discussed stressors and negative thoughts impacting self-confidence. Therapist utilized CBT techniques to aid pt in challenging distorted thoughts about self and reframing to create affirmational statements. Elicited change behaviors. Client Response:: Pt receptive of session, engaged throughout and willing to actively participate in discussion. Pt shared that he has been doing ?pretty well? and that he has found his mental health sx have improved since beginning IOP tx as he is more active. Pt noted that urges to drink and negative thoughts about self tend to increase when he is bored or lonely. Shared that by attending the group 3x per week he has had fewer urges to consume alcohol and will be 50 days sober on Tuesday. He shared wanting to identify healthy activities he may be able to engage in when he completes IOP tx to prevent reverting back to unhealthy coping via drinking. Pt and therapist discussed a variety of options and pt indicated that his outpatient provider had mentioned [facility] as a local resource. Noted he has not previously been to [facility] and is a little apprehensive of starting something new and fears he will overwhelm himself if he attempts to add additional activities to current schedule. Pt did well to work with therapist to problem solve solutions for increasing healthy prosocial activities and supports without overwhelming him. Pt open to attending IOP tx twice next week rather than usual three times and [facility] on his typical third day. Noted this will allow him to see if he connects with the environment and prevent from taking on too much. Additionally, discussed continuing to struggle with negative self-talk and distorted thoughts such as ?You?re a lose r?, ?You?re a bum?, and ?You should be the one providing for the family, you?re supposed to be the man?. Did well to work with therapist to challenge and reframe distorted thoughts. Able to identify why it is important to take time for his mental health tx rather than force himself to work when he is not mentally stable. Identified reframe statements as: ?I have accomplished a lot already and can return to work later if you want? and ?I am a kind and a good person?. Provided with homework to ask supports what positive qualities they see in him and create 2 additional affirmations based on those qualities identified by supports. Risks/Concerns:: Pt denies active SI, plan, or intent as of this date, 03/01/19. Progress Toward Goals/Plan:: Progress noted. Insight that boredom and loneliness can be triggers for pt to engage in drinking behaviors and did well to problem solve solutions for engaging in prosocial activities to reduce loneliness /boredom. Self-esteem and overall mood continue to improve per pt report. Continued reports of maintaining sobriety and applying healthy means for coping via reaching out to supports, attending AA, and continuing outpatient substance use counseling. Continues to report difficulties with challenging negative self- talk statements that reinforce depression and low self-worth. Willing to work with this therapist to develop affirmational statements to challenge distortions when they occur and reduce negative thinking. Will continue IOP level of tx to improve use of anxiety management skills, increase confidence, reduce depression, and maintain sobriety and mood stability. Time Stopped:: 09:12
--- NOTE | 2019-03-01 10:13 | BH.SGPN.GN ---
Behaviors/Verbalizations/Mental Status: [Client alert and oriented, casually dressed and groomed. Eye contact fair to good. Motor activity appropriate. Speech within normal limits. Affect congruent, mood anxious and euthymic. Thoughts linear, logical, no signs of hallucinations or delusions.] Client Response/Progress/Benefit: [Client active participant during group AEB client contributing some to discussion and making connections throughout. Client reported it is important to have a variety of social supports and indicated that supports can also include doctor?s, support groups, and therapists. Client helped group brainstorm potential consequences of not having a support system and barriers to developing social supports, which included: feeling like a burden, lack of effective communication, anxiety, and not knowing where/how to find new supports. Group identified benefits of social support as building trust, increased motivation, less loneliness, different perspective, sense of purpose, resources, and accountability. Client reported when he feels supported, he is more likely to make healthy decisions and avoid relapsing. Client engaged during the group activity and was able to ask for help as well as provide direction to peers, open to feedback from others. Appeared to benefit from gaining awareness of barriers that keep people from seeking social support as well as identifying the benefits of increasing support. Client progressing AEB client reports of improved mood and increased application engagement in IOP group discussion. Pt to continue IOP tx to reduce depression, improve symptom management, maintain gains, and prevent decompensation. ] Narrative Note: []
--- NOTE | 2019-03-01 11:15 | BH.SGPN.GN ---
Behaviors/Verbalizations/Mental Status: []Pt alert and oriented, eye contact good, casually dressed, motor activity appropriate, speech normal rate and tone, mood anxious, congruent affect, thoughts linear and intact, no evidence of delusions or hallucinations. Client Response/Progress/Benefit: []Client engaged participant AEB client contributing to discussion and listened attentively to others. Client contributed to discussion about the different types of support and benefits different types of support can provide. Client worked with the group to identify strategies for improving development of new supports and better utilization of current supports. Client identified he would like to improve personal relationships by opening up to his family about how he is feeling. Client identified his first step is to work on increasing communication of his thoughts and emotions with his support network. Client seemed to benefit from identifying a type of support he would like to improve upon and creating actionable steps to promote follow-through. Client to continue IOP level of care to prevent decompensation, stablize moods and utilize healthy coping skills. Narrative Note: []
--- NOTE | 2019-03-05 09:05 | BH.SGPN.GN ---
Behaviors/Verbalizations/Mental Status: []Client alert and oriented, casual dress, poor hygiene. Eye contact good. Motor activity appropriate. Speech within normal limits. Affect congruent, mood euthymic, slightly agitated. Thoughts linear, logical, no signs of hallucinations or delusions. Reviewed client?s symptom tracker, no signs of suicidal ideation, plan, or intent as of today. Client Response/Progress/Benefit: []Pt was an engaged participant in group discussion, providing input and openly processing feelings with the group. Emotion for today is slightly agitated and happy. Pt identified mental health positive as maintaining sobriety over the weekend by using deep breathing skills and listening to music to manage emotions. Pt identified attending IOP as additional positive. Pt stated current stressor is feeling like his 's kids see him as a joke. Pt reported his 's kids don't listen to him, which makes him agitated and upset. Pt attributing the kids non-compliance to them being typical teenagers. Seemed to benefit from support from peers. Progress noted in pt using healthy skills outside treatment environment. Continued IOP tx recommended to continue application of healthy coping skills, identify and challenge distorted thoughts, and prevent decompensation. Narrative Note: []
--- NOTE | 2019-03-05 10:20 | BH.SGPN.GN ---
Behaviors/Verbalizations/Mental Status: []Client alert and oriented, disheveled appearance- odor. Eye contact good. Motor activity appropriate. Speech within normal limits. Affect flat, mood euthymic. Thoughts linear, logical, no signs of hallucinations or delusions. Client Response/Progress/Benefit: []Client responded well to session, attentive, but quiet throughout session. Group identified the benefits to setting boundaries as well as the consequences of not setting healthy boundaries and client appeared attentive. Listened to the discussion of benefits which included; increased confidence, self-love, protection, clearer understanding of one?s values, increased self-awareness, and gaining trust and respect. Group identified the barriers that keep one from setting boundaries. Client listening during discussion of the different types of boundaries as well as the benefits of each. Client able to recognize his own mental health suffers when he does not set boundaries with himself and others. Client seemed to benefit from increased awareness of how poor boundaries can negatively impact mental health. Will continue IOP tx as client can continue to reduce depressive symptoms, maintain sobriety, and learn healthy coping skills. Narrative Note: []
--- NOTE | 2019-03-05 11:19 | BH.SGPN.GN ---
Behaviors/Verbalizations/Mental Status: [Client alert and oriented, casual dress, hygiene fair. Eye contact good. Motor activity appropriate. Speech within normal limits. Affect congruent, mood anxious, euthymic. Thoughts linear, logical, no signs of hallucinations or delusions.] Client Response/Progress/Benefit: [Pt responded well to session, active participant and willing to provide increased insight compared to prior groups. Pt did well to engage in the boundary self-assessment activity and worked with group to further process. Pt discussed that he has been able to increase awareness of how his boundaries impact mental health and relationships with others by identifying how not asking for help has impacted his mental health in the past. Noted that he has historically struggled in asking for help and trusting others due to fearing how they would view him if he did. Appeared to benefit from group discussion on strategies for further improving personal boundaries. Identified wanting to improve his ability to enhance emotional boundaries by decreasing rigidity and improving ability to ask for help. Progress noted in pt ability to identify impact of current boundaries on mental health progress and relationships. Pt to continue IOP tx to maintain gains made, improve anxiety and depression management, and continue to promote healthy change behaviors.] Narrative Note: []
--- NOTE | 2019-03-08 09:00 | BH.SGPN.GN ---
Behaviors/Verbalizations/Mental Status: [] Eye contact is good. Motor activity is appropriate. Appearance is casual. Speech is Appropriate. Mood is depressed/irritable. Affect is flat. Thoughts are linear and logical. No evidence of psychosis. Reviewed daily check in sheet and no reports of suicidal ideations or intent. Client Response/Progress/Benefit: [] Pt participated when prompted. Emotion for today is agitated. Very short check-in which is baseline for pt. Mental health wins include increased patience with kids and continued attendance in IOP. Limited stressors noted. Daily symptom tracker notes 4/5 for agitation and 2/5 for anxiety and hopelessnes. Also notes low energy and poor sleep last night. Progress noted. Will continue in IOP to maintain safety, increase skills to decrease re-admission to hospital, and provided support. Narrative Note: []
--- NOTE | 2019-03-08 10:13 | BH.SGPN.GN ---
Behaviors/Verbalizations/Mental Status: [Client alert and oriented, casually dressed and appropriately groomed. Eye contact fair to good. Motor activity appropriate. Speech within normal limits. Affect congruent, mood euthymic, anxious. Thoughts linear, logical, no signs of hallucinations or delusions. ] Client Response/Progress/Benefit: [Client was an active participant in group activity and provided some input to discussion. He connected with the topic of obstacles and solutions and taking notes as group identified common internal and external barriers that could prevent progress towards desired reality. Client shared his current reality is ?walking down a path with a large hole he keeps falling into. Pt shared that he knows he can move past this point with aid from his family. Client shared a realistic, desired reality would be feeling able to use coping skills of positive thinking to get past the hole. Benefited from group as client was able to identify impact of internal barriers on current mental health state and ability to make progress. Will continue IOP to prevent decompensation and improve self-esteem, as well as reduce depression.] Narrative Note: []
--- NOTE | 2019-03-08 11:15 | BH.SGPN.GN ---
Behaviors/Verbalizations/Mental Status: []Client alert and oriented, casually dressed and groomed. Eye contact good. Motor activity appropriate. Speech within normal limits. Affect congruent, mood euthymic. Thoughts linear, logical, no signs of hallucinations or delusions. Client Response/Progress/Benefit: []Client was an active participant in group discussion and activity. Able to identify negative self-talk and negative thinking as obstacles which are preventing client from achieving client?s desired reality. However, client was able to identify personal resilience factors that can help client overcome these barriers. Client?s personal resilience factors included; getting professional help, reaching out to family, and challenging negative thoughts. Active during activity and providing ideas on how to cope with internal barriers. Client along with peers identified various obstacles during the activity and developed strategies to overcome those obstacles to wellness and desired reality. Client selected wanting to work on the barrier of negative self-talk and wants to do so by using positive self-talk. Benefited from group by identifying obstacles and solutions to desired reality. Will continue IOP tx to promote sobriety, increase healthy coping skills, and further decrease depression. Narrative Note: []
--- NOTE | 2019-03-08 15:45 | BH.MDN ---
Multi-Disciplinary Note - Note 30-min Individual Time Started:: 12:25 Date: 03/08/19 Purpose of session/treatment goals addressed:: Purpose of this session was to assess current symptoms, stressors, and progress towards treatment goals. Another purpose was to discuss ways for pt to improve consistent use of affirmational statements and increase self-confidence levels. Eye Contact:: Good Motor Activity:: Appropriate Appearance:: Casual Speech:: Soft Mood:: Euthymic, Anxious Affect:: Congruent Thoughts:: Linear, Logical, No evidence of hallucinations/delusions noted Staff Interventions:: Therapist asked open-ended and furthering questions to elicit additional information regarding pt current symptoms, stressors, and treatment goal progress. Provided feedback and encouragement as pt discussed thoughts impacting self-confidence. Therapist commended pt on areas of progress and skills he is apply. Utilized [place] techniques to elicit change behaviors. Client Response:: Pt receptive of session, engaged throughout and participated in discussion. Pt shared that he has noticed improvements in his overall mood recently and attributes this to using his family for support more often as well as engaging in regular nighttime self-care activities. Pt notes he has been coloring at night to reduce urges to drink at night and finds this has been helpful. Went on to discuss that although his mood has begun improving, he continues to struggle with self-confidence levels. Reports ongoing thoughts of not doing enough around house as he is not providing financially for the family. Indicated struggling to remember to say the affirmations created in previous session when struggling with negative self-talk. Receptive of putting affirmations on an index card to keep in his wallet so he has easier access and is less likely to forget. Additionally, pt noted that he has not done something just for himself in years and has not attempted to played an instrument in years. Reports no longer owning his [place]real guitar but does still have the sheet music and thinks it may be helpful to encourage him to get back involved with musical interests if he began spending 5-10 minutes over the next few days reading over some of his music. Risks/Concerns:: Pt denies active SI, plan, or intent as of this date, 03/08/19. Progress Toward Goals/Plan:: Progress noted. Self-report of improved overall mood and reduced depression. Pt has made efforts to begin reducing isolation as well by making plans to begin attending [facility] starting tomorrow. Pt additionally is applying self-soothing skills of coloring and playing cards with his children. Continued reports of maintaining sobriety and reaching out to supports, attending AA, and continuing outpatient substance use counseling. Continues to report difficulties with challenging negative self-talk statements that reinforce depression and low self-worth. Will continue IOP level of tx to improve use of anxiety management skills, increase confidence, reduce depression, and maintain sobriety and mood stability. Time Stopped:: 12:46
--- NOTE | 2019-03-12 08:18 | BH.MDN_ITS ---
Multi-Disciplinary Note - Note 30-min Individual Time Started:: 11:36 Date: 03/12/19 Purpose of session/treatment goals addressed:: The purpose of this session was to assess pt current symptoms and stressors. Additional purpose was to complete treatment plan review and discuss pt perceived progress towards treatment goals, barriers maintaining depression, and areas to continue to focus on moving forward in IOP treatment. Eye Contact:: Good Motor Activity:: Appropriate Appearance:: Casual Speech:: Appropriate Mood:: Anxious, Dysthymic Affect:: Congruent Thoughts:: Linear, Logical, No evidence of hallucinations/delusions noted Staff Interventions:: Therapist asked open-ended and furthering questions to elicit information on pt current symptoms, stressors, and perceptions of treatment goal process. Applied strength?s-based approaches to promote self- efficacy, aid pt in identifying strengths and areas of progress, and continue to promote gains. Therapist utilized VT techniques to identify areas for continued growth, potential barriers, and small goals to promote application of healthy change behaviors. Reviewed DSM cross-cutting scales with patient. Discussed strategies for continued improvement moving forward. Client Response:: Pt receptive of session and did well to remain actively engaged throughout. Indicated feeling a ?a little low? today as he has been sick for the past few days. Unable to attend [facility] on Tuesday as a result and shared plans to attend this week. Pt noted that he believes this is due to changes in his blood pressure medications and expressed plans to address this with his PCP. Went on to discuss feeling more depressed over the past few days and attributes this to increased conflict with his fianc? and ongoing negative thoughts about his own self-worth. Expressed experiencing some passive thoughts of self-harming following argument with fianc? about finances but was able to easily control this urge through use of healthy distraction via coloring and positive affirmations. Indicates he has been using the affirmation notecard created in prior session and keeps it in his wallet. Although this is helpful in the moment, Pt continues to report low self-worth related to his inability to provide financially for the family. Identified a desire to seek occasional or part-time employment while filing for disability to improve self-confidence levels and feel as though he is contributing something. Discussed anxiety about ability to successfully maintain employment. Pt and therapist discussed strategies for supporting himself as he pursues this, provided with resource of employment assistance program through the counseling center. Spent remaining portion of session reviewing DSM-5 crosscutting scores from admission compared to now. Pt reports agreement with scores reflecting that although scores for anxiety have remained the same, he has seen progress in reduction of depression related sx, improved ability to apply affirmations and healthy coping skills to reduce urges to drink. Pt expressed surprise that his overall scores have reduced by 21% and indicated feeling more hopeful knowing that he is making progress despite not always being able to recognize it given ongoing anxiety. Risks/Concerns:: No risks or concerns noted. Pt denies active SI, plan, or intent as of this date 03/12/19. Reports experiencing passive thoughts of self-harming over the weekend when having an argument but indicated this was fleeting and easily controlled with use of healthy distraction and positive affirmations. Denies self-harming thoughts since and indicates ability to maintain safety at this time. Progress Toward Goals/Plan:: Some regression as pt reports experiencing an influx in depressive sx. Pt reports this is related to ongoing negative thoughts about self, working actively to combat these and is able to identify additional strategies for doing so. Pt reports recent decrease in socialization with supports due to arguing about finances, able to identify importance of continuing to reach out to supports and notes plans to expand support network via beginning [facility]. Pt identified that his increase in depression is likely situational and this his major concern is ongoing anxiety impacting ability to work, contributes to reinforcing isolative behaviors ,and ultimately results contributes to depressive cycle. Pt continues to maintain sobriety, is engaging in more self-care activities, and reports plans to seek employment. Pt completed DSM-5 crosscutting inventory to assess progress since admission and has decreased overall mental health sx by 21%, most significantly in regard to reduction of depression, intrusive thoughts, and feeling disconnected from self and others. See tx plan review for further detail. Pt recommended continued IOP tx to continue to work on decreasing anxiety sx, improving social support network , and preventing decompensation. Time Stopped:: 12:00
--- NOTE | 2019-03-12 09:05 | BH.SGPN.GN ---
Behaviors/Verbalizations/Mental Status: [] Eye contact is good. Motor activity is appropriate. Appearance is casual. Speech is Appropriate. Mood is depressed. Affect is flat. Thoughts are linear and logical. No evidence of psychosis. Reviewed daily check in sheet and no reports of suicidal ideations or intent. Client Response/Progress/Benefit: [] Pt spoke when prompted. Poor eye contact. Emotions for today is agitated. Daily tracker indicates 3/5 for anxiety, 4/5 for agitation and hopelessness, and poor sleep last night. Check-in was short which is baseline for pt. Shared with the group that he has been sober for 60 days. This is huge accomplishment and he alcohol use caused depression, rumination, and suicidal thoughts often leading to psychiatric admissions. Reports that he and his family got a [employer] tress yesterday which was special for him. Progress noted per pt report. Benefited from group support and encouragement. Will continue in IOP to prevent decompensation, increase health coping, and stabilize depression. Narrative Note: []
--- NOTE | 2019-03-12 10:15 | BH.SGPN.GN ---
Behaviors/Verbalizations/Mental Status: [Client alert and oriented, casually dressed and appropriately groomed. Eye contact good. Motor activity appropriate. Speech within normal limits. Affect congruent, mood anxious, euthymic. Thoughts linear, logical, no signs of hallucinations or delusions.] Client Response/Progress/Benefit: [Client more active participant in group than prior sessions, AEB providing input, actively listening, as well as taking notes throughout. Indicated that without change we can?t meet our goals. Group worked together to identify barriers to making changes or taking action in their lives which included: fear of the unknown, fear of failure, comfort zone, denial of need to change, and lack of self-awareness. Group also identified the benefits of taking action which included; increased hope and confidence, improved mental health, no longer feeling ?stuck? or stagnant, and personal growth. Client identified personal areas he would like to take back control of to include: avoidance, negative self-talk, and fear of showing weakness. Shared noticing increased avoidance of supports has impacted his mental health and depression levels. Benefited from group through increased awareness of personal areas he wants to improve and benefits to taking action towards mental wellness. Progress noted in increased personal reflection of areas he would benefit from making changes for her mental health. Pt is recommended continued IOP level of care to improve mood stability, promote consistent application of healthy coping skills, and prevent decompensation.] Narrative Note: []
--- NOTE | 2019-03-12 15:31 | BH.MTP_ITS ---
Treatment Plan Review Date of Admission:: 02/05/19 Date of Treatment Plan Review:: 03/12/19 Admitting Diagnoses:: Bipolar 1 disorder, most recent episode depression, severe without psychosis; PTSD; generalized anxiety disorder; alcohol use disorder Current Diagnoses:: Bipolar 1 disorder, most recent episode depression, severe without psychosis; PTSD; generalized anxiety disorder; alcohol use disorder Patient's Response to Treatment:: Client has had a mostly positive response to treatment so far; however, continues to report sx of anxiety. Client progress is evidenced by self-report as well as reduction in DSM-5 scores. Client has done well to remain engaged in both individual and group sessions, consistently provides feedback, and is willing to complete homework as provided. Client struggles at times to see consistent progress due to difficulty challenging cognitive distortions and self-reports ongoing self-doubt impacting ability and willingness to actively apply skills learned. Client reports feeling proud of progress thus far and is motivated to continue to work towards further gains. Status of Current Problems and Symptoms: Client DSM-5 scores indicate an overall 21% reduction in mental health sx. Pt reports agreement with scores reflecting that although scores for anxiety have remained the same, he has seen progress in reduction of depression related sx, improved ability to apply affirmations and healthy coping skills to reduce urges to drink. Pt expressed surprise that his overall scores have reduced by 21% and indicated feeling more hopeful knowing that he is making progress despite not always being able to recognize it given ongoing anxiety. Reports recent influx in self-doubt and negative self-talk which he would like to continue focusing on. Client is working to increase consistency in applying healthy coping skills and increasing independence. Problem #1 Problem Name:: Pt. will reduce depression, hopelessness, negative thinking, and SI Status of Goals:: Objective 1-not complete. Client is able to identify negative self-talk messages that often contribute to depression and mood instability; however, self-reports ongoing difficulties in effectively challenging and replacing these messages when identified. Continues to report struggling with distortions such as all or nothing thinking, mental filtering, and catastroph izing that reinforce depression and hopelessness. With assistance, client is able to somewhat challenge these thoughts in session, but struggles to believe replacement messages. Objective 2- not complete. Client has learned new healthy coping skills to use to better manage depression and mood instability, but self-reports inconsistency with applying these skills and continues to struggle with believing they may be effective in reducing overall sx. Team Recommendations:: Client encouraged to continue working on these treatment goals. Client and therapist have been working on challenging distortions, using calming skills, and practicing opposite action. Will continue IOP tx for further tx progress. Problem #2 Problem Name:: Pt. will reduce freq. & intensity of anxiety while increasing functioning Status of Goals:: Objective 1- incomplete. Client can identify some anxiety triggers and coping skills for managing these triggers. He has completes a crisis management plan for addressing anxiety; however, continues to struggle significantly with actively utilizing this completed coping plan. Client reports struggling to remember to do so as well as limited motivation in the moment which prevents active skill application as well. Team Recommendations:: Client encouraged to continue working on this treatment goal as he continues to experience ruminations, anxiety, paranoia, and agitation. Client and therapist have been working on challenging distortions, practicing calming skills, and relying on internal coping rather than seeking external support alone.
--- NOTE | 2019-03-16 12:03 | BH.COMM ---
Communication Note - Communication with Client Communication Note: Called pt due to no-call/no-show yesterday. Spoke with pt's pilo who reports that he has been ill and must have forget to call in. Enocuraged her to speak with pt and have him call in as he is scheduled to see psychiatrist on 03/19/19
--- NOTE | 2019-03-19 12:05 | BH.COMM ---
Communication Note - Communication with Client Communication Note: Pt did not show for IOP today. Therefore missed appt with psychiatrist.
--- NOTE | 2019-03-19 15:27 | BH.COMM ---
Communication Note - Communication with Client Communication Note: Contacted pt due to 2 missed IOP sessions. Pt reports he has been sick and will be unable to attend group this week as his children are on winter break and he does not have a sitter for them. Pt reports plans to return to group following the holiday, on Tuesday03/26/19.
--- NOTE | 2019-03-23 10:14 | BH.COMM_ITS ---
Communication Note - Communication with Client Communication Note: Attempted to reach out to pt to schedule IOP group for the week, however was unable to reach pt or his fiance. Messages encouraging pt to return this therapist's call were left for both pt and his fiance. Will follow- up
--- NOTE | 2019-03-27 10:15 | BH.COMM ---
Communication Note - Communication with Client Communication Note: Again attempted to contact pt to schedule for IOP group attendance and was unable to reach client. Will continue to follow-up.
--- NOTE | 2019-03-27 15:40 | BH.DS_ITS ---
Discharge Summary - Demographics Date of Admission:: 02/05/19 Discharge Date: 03/27/19 Presenting Problems at Admission:: Client is a 38-year-old male with a history of Bipolar 1 Disorder, PTSD, anxiety, and alcohol use disorder. Client was referred to [facility] by Norma following inpatient hospitalization from January 11 ? due to increased suicidal ideation with plans to jump in traffic. Pt denies acitive intent and reports being under the influence of alcohol at that time. Pt reports his mental health has been decompensating steadily since his ?s in 2008. He indicates experiencing significant increase in sx of depression and anxiety, worsening feelings of guilt, and passive thoughts of as a result. Since that time pt reports turning to alcohol as primary means of coping, drinking a 24 pack/ day when use was at it?s worst and approximately 5 beers per day before stopping use approximately 17 days ago. Pt reports 6 psychiatric inpatient hospitalizations since 2008, 3 of which occurred in the past 6 months. He has had one prior suicide attempt, occurring in 2011 in which pt attempted overdose. Denies any attempts since, but has had chronic passive thoughts of with vague plans to OD or jump in traffic. Reports passive thoughts had been increasingly worse prior to most recent hospitalization on 01/11/19. Shared currently experience fleeting thoughts of about once per week. Reports that in the past 6 months he has had increasing difficulties in functioning at baseline which has resulted in pt inability to sustain employment and is currently unemployed. Client currently endorses a depressed mood, lack of energy, lack of concentration, lack of motivation, avoidance behaviors, increased sx of social anxiety, rumination, emotional dysregulation, feeling numb, lack of connection with others, and difficulties with sleep. Client's symptoms are interfering with his social, occupation, and familial functioning. Discharge Diagnoses:: Bipolar 1 disorder, most recent episode depression, severe without psychosis; PTSD; generalized anxiety disorder; alcohol use disorder Reason for Discharge:: Client demonstrated significant progress towards treatment goals while in the IOP program as shown by self-reported reduced depression and anxiety, ability to maintain sobriety, as well as reduction on scores of DSM-5 cross-cutting analysis at midpoint review. Client reported needing to take the week of off to provide childcare for his children; however, following the holiday did not return to the program or return any follow-up attempts. Client?s outpatient therapist has been informed and reports pt is scheduled to follow-up with outpatient therapeutic services 04/11/2019. Due to lack of ability to contact client, he will be discharged from [facility] services and is encouraged to step down to individual outpatient treatment at this time. - Treatment Progress During Treatment & Response: While in active attendance, Client responded well to treatment as shown by overall consistent attendance prior to 03/19/19, active participation in both group activities and discussion, participation in individual sessions, and reduction of DSM-5 symptoms AEB scores at time of treatment review. Client started off quiet, reporting social anxiety as a barrier to his ability to engage in group sessions, but with time became more engaged and comfortable within the group. Client often remained an active listener, provided some insight to discussion, and took notes during group sessions. In individual sessions, client was open with his thoughts and concerns, receptive to learning new coping skills, willing to create and follow through with small goal setting and was engaged in the treatment process. Client demonstrated improvement in overall application of coping skills outside of group, specifically that of self-care and practicing distress tolerance skills to prevent crisis escalation and maintain sobriety. Pt noted actively utilizing positive self-talk, reaching out to supports, and began coloring as tools for when struggling with anxiety and negative thoughts. Client self-identified his progress at time of mid-point review as increased use of positive self-talk, reduced depression and no longer experiencing SI, increased communication with supports, and ability to maintain sobriety. Due to Client unexpectedly not returning to [facility] tx nor returning any follow-up attempts following the hol, client?s DSM-5 symptom scores were un available at time of discharge. Issues Still to be Addressed:: Client can continue to benefit from ongoing counseling to reinforce healthy coping skills, manage unexpected stressors and triggers, as well as continue to increase communication. Client can continue to benefit from ongoing work on utilizing opposite action and healthy coping skills to prevent reverting back to previous substance use behaviors. Client has report ed ongoing issues with self-esteem related to guilt and past trauma. He is recommended to begin trauma specific therapy. Client would benefit from ongoing focus on self-confidence and self-compassion. Discharge Recommendations/Instructions:: Pt currently connected with [facility] psychiatry and is working with [facility] for Dual Disorder mental health and substance use treatment. Prior to discharge, pt reported plans to begin attending [facility] as well. Discharge Handout: Complete Discharge Handout with client on aftercare options and continuity of care.
--- NOTE | 2019-04-02 10:17 | BH.COMM_ITS ---
Communication Note - Communication with Client Communication Note: Pt has not attended IOP group in two weeks nor has he returned any messages regarding attendance. Therapist has reached out to pt outpatient provider at [facility] who indicated that they would follow-up with pt. Due to lack of attendance and follow-up pt will be discharged from IOP tx at this time. A message was left with pt and his fiance explainging this and encouraging them to follow-up should he want to remain in IOP tx.
== END 2019-03-27 23:59 ==
LOC: BHIOP 09:00
PROVIDERS: Family Provider Student in an Organized Health Care Education/Training Program; PCP Student in an Organized Health Care Education/Training Program; Referring Provider Psychiatry & Neurology Psychiatry; Visit Provider Psychiatry & Neurology Psychiatry
DX: F31.4 Bipolar disorder, current episode depressed, severe, without psychotic features (principal); F43.10 Post-traumatic stress disorder, unspecified; F41.1 Generalized anxiety disorder; Z72.89 Other problems related to lifestyle
CPT/HCPCS: H0035; H2012; H2020; 90832

== ENCOUNTER 2019-05-28 18:48 | Emergency (ER) | payer MEDICAID, SELFPAY ==
[2019-05-28 18:49] VITALS: BP 156/79; PULSE 107; RESP 16; TEMP 37.4; O2SAT 95; BMI 35.0
[2019-05-28 19:45] LABS: Absolute Lymphocyte Count 2.37 X10^3/uL (0.83-4.51); Absolute Neutrophil Count 6.4 X10^3/uL (2.0-7.7); Basophil# 0.07 X10^3/uL; Basophil% 0.7 % (0-1); Eosinophil# 0.33 X10^3/uL; Eosinophils% 3.3 % (0-5); Hematocrit 41.5 % (40-54); Hemoglobin 14.2 g/dL (13.0-16.5); Lymphocyte # 2.37 X10^3/ul (4.0); Lymphocyte % 23.5 % (19-41); Mean Corp Hgb Conc 34.2 g/dL (32-36); Mean Corpuscular Hgb 29.3 pg (27.0-32.0); Mean Corpuscular Volume 85.7 fL (80-94); Mean Platelet Vol. 10.7 fl (6.2-12.0); Monocyte# 0.89 X10^3/uL; Monocyte% 8.8 % (0-10); NRBC Flagged by Analyzer 0 % (0-5); Neutrophil # 6.39 X10^3/uL (2.7-7.7); Neutrophil % 63.3 % (47-70); Platelet Count 288 K/mm3 (150-450); RBC Distribution Width CV 12.2 % (11.6-14.6); Red Blood Count 4.84 M/mm3 (4.6-6.2); White Blood Count 10.1 K/mm3 (4.4-11.0)
[2019-05-28 19:55] VITALS: RESP 15
[2019-05-28 19:55] LABS: Alcohol, Blood (Medical)-Serum < 3.0 mg/dL
[2019-05-28 19:57] LABS: Anion Gap 7 (5-15); BUN 5 mg/dL (7-18); BUN/Creat Ratio 3.8 RATIO (10-20); Calcium,Total 9.2 mg/dL (8.5-10.1); Chloride 108 mmol/L (98-107); Creatinine, Serum 1.31 mg/dL (0.70-1.30); EST Glomerular Filtration Rate 64 mL/min (>60); Est Glom Filt Rate - Afr Amer 78 mL/min (>60); Estimated Creatinine Clearance 67.64 ml/min; Glucose 98 mg/dL (74-106); Potassium 3.4 mmol/L (3.5-5.1); Sodium Level 139 mmol/L (136-145)
[2019-05-28 20:00] VITALS: RESP 16
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
[2019-05-28 20:45] LABS: Amphetamine Urine VISTA NEGATIVE (<1000 ng/mL); Barbiturate Urine VISTA NEGATIVE (< 200 ng/mL); Benzodiazepine Urine VISTA NEGATIVE (< 200 ng/mL); Cocaine Urine VISTA NEGATIVE (< 300 ng/mL); Ecstacy Urine VISTA NEGATIVE (< 500 ng/mL); Methadone Urine VISTA NEGATIVE (< 300 ng/mL); PCP Urine VISTA NEGATIVE (< 25 ng/mL); THC Urine VISTA NEGATIVE (< 50 ng/mL); Vista UDS pH Range 6
--- NOTE | 2019-05-28 20:46 | ED.DCSUM_ITS ---
History of Present Illness Chief Complaint: Suicidal Informant: Patient Onset: Today Context: Gradual Onset Timing: Continuous Current Severity: Moderate Maximum Severity: Severe Narrative: The patient is a 39-year-old male with medical history significant for bipolar disorder and prior alcohol abuse who is been in remission for 140 days. The patient presents to the emergency department with increasing suicidal ideation. He states that he just has not felt himself. He has been increasingly depressed. Today, he states depression is to the point where he felt like he had no reason to live. He had plan to overdose on his medications. The patient has overdosed before. He has been hospitalized multiple times for suicidality. He states he had called the counseling center and because of his symptoms presented here. Prior similar symptoms: Yes Recent Illness/Hospitalization: No Past Medical History - Allergies and Home Meds Allergies/Adverse Reactions: Allergies No Known Allergies Allergy (Verified 05/28/19 18:52) Primary Care Physician: Diomedes Shine DO [Primary Care Provider] - Prior records reviewed: Yes Past Medical History: - - Bipolar disorder, history of alcohol abuse Surgical History: no surgical history Smoking Status: Former smoker Review of Systems General: Denies: Chills, Fever, Sweats Eyes: Denies: Visual changes - bilaterally, Diplopia ENT: Denies: Rhinorrhea, Sore throat Cardiovascular: Denies: Chest pain, Palpitations Respiratory: Denies: Dyspnea, Cough, Dyspnea on exertion Gastrointestinal: Denies: Abdominal pain, Nausea, Vomiting, Diarrhea, Melena, Hematochezia Genitourinary: Denies: Dysuria, Hematuria, Frequency Musculoskeletal: Denies: Back pain, Extremity Pain Skin: Denies: Rash, Wounds Neurological: Denies: Headache, Weakness, Numbness Psych: Reports: Depression, Suicidal thoughts, Suicidal ideations Physical Exam Vital Signs/Narrative: Vital Signs Temp Pulse Resp BP Pulse Ox 05/28/19 19:55 15 05/28/19 18:49 99.4 F H 107 H 16 156/79 H 95 Inital Vital Signs reviewed: Yes General: Well nourished, Well developed, No Acute Distress Head: Normocephalic, Atraumatic Eyes: Perrl, EOMI ENT: Moist mucous membranes, No rhinorrhea Neck: Supple, Nontender Cardiovascular: Regular rate, Regular rhythm, No murmurs Respiratory: No distress, CTA bilaterally, Chest nontender Abdomen: Soft, Nontender, Nondistended, Normal bowel sounds Back: Nontender, Normal Inspection Extremities: Nontender, No edema Skin: Normal color, No rash Neurological: Alert, Oriented x3, Cranial nerves II-XII grossly intact, Normal Strength, Normal Sensation Psychological: Normal affect, Depressed Diagnostic/Tx/Re-eval Abnormal Lab Results 05/28/19 05/28/19 05/28/19 19:12 19:12 19:12 WBC 10.1 RBC 4.84 Hgb 14.2 Hct 41.5 MCV 85.7 MCH 29.3 MCHC 34.2 RDW Std Deviation 38.0 RDW Coeff of Aaron 12.2 Plt Count 288 MPV 10.7 Immature Gran % (Auto) 0.400 Neut % (Auto) 63.3 Lymph % (Auto) 23.5 [place] % (Auto) 8.8 Eos % (Auto) 3.3 Baso % (Auto) 0.7 Absolute Neuts (auto) 6.4 Absolute Lymphs (auto) 2.37 Nucleated RBC % 0 Sodium 139 Potassium 3.4 L Chloride 108 H Carbon Dioxide 24.0 Anion Gap 7 BUN 5 L Creatinine 1.31 H Estim Creat Clear Calc 67.64 Est GFR (MDRD) Af Amer 78 Est GFR (MDRD) Non-Af 64 BUN/Creatinine Ratio 3.8 L Glucose 98 Calcium 9.2 Urine Opiates Screen Urine Methadone Screen Ur Barbiturates Screen Ur Phencyclidine Scrn Ur Amphetamines Screen U Methamphetamin-MDMA U Benzodiazepines Scrn Urine Cocaine Screen U Cannabinoids Screen Ur Drug Screen Comment Ethyl Alcohol < 3.0 05/28/19 20:00 WBC RBC Hgb Hct MCV MCH MCHC RDW Std Deviation RDW Coeff of Aaron Plt Count MPV Immature Gran % (Auto) Neut % (Auto) Lymph % (Auto) [place] % (Auto) Eos % (Auto) Baso % (Auto) Absolute Neuts (auto) Absolute Lymphs (auto) Nucleated RBC % Sodium Potassium Chloride Carbon Dioxide Anion Gap BUN Creatinine Estim Creat Clear Calc Est GFR (MDRD) Af Amer Est GFR (MDRD) Non-Af BUN/Creatinine Ratio Glucose Calcium Urine Opiates Screen NEGATIVE Urine Methadone Screen NEGATIVE Ur Barbiturates Screen NEGATIVE Ur Phencyclidine Scrn NEGATIVE Ur Amphetamines Screen NEGATIVE U Methamphetamin-MDMA NEGATIVE U Benzodiazepines Scrn NEGATIVE Urine Cocaine Screen NEGATIVE U Cannabinoids Screen NEGATIVE Ur Drug Screen Comment Ethyl Alcohol - Medical Decision Making The patient presents with suicidal ideation with plan. He was given oral Ativan. He was not combative or agitated. Metabolic screening exam was performed. This was unremarkable. The patient was discussed with social work and [facility] and he was accepted. He will be transferred for his suicidal ideation with plan. Impression 1. Suicidal ideation with plan ED Disposition - Plan for ED Patient: Referrals: Diomedes Shine DO [Primary Care Provider] -
[2019-05-28 21:00] VITALS: RESP 16
--- NOTE | 2019-05-28 21:13 | CM.ED ---
SOCIAL WORK REFERRAL CALLED AND FAXED TO DANY AT [facility]. AWAITING ACCEPTANCE AT THIS TIME. Taryn TURK, SPORTS BOOKMAKER, HONING MACHINE OPERATOR PRODUCTION.
--- NOTE | 2019-05-28 21:21 | CM.ED ---
SOCIAL WORK CALL FROM DANY AT [facility]. PATIENT ACCEPTED BY DR. COMBS TO THE 1600 UNIT. NURSE TO CALL REPORT TO . STAFF UPDATED. STAGE DIRECTOR TO SET UP TRANSPORT. PINK SLIP ON CHART. Taryn TURK, WOOL GROWER, LINER WORKER.
[2019-05-28 22:30] VITALS: BP 142/85; PULSE 82; RESP 16; O2SAT 97
[2019-05-28 23:00] VITALS: RESP 16
== END 2019-05-28 23:28 ==
LOC: ED 19:28
PROVIDERS: Emergency Provider Emergency Medicine; PCP Student in an Organized Health Care Education/Training Program
DX: F31.9 Bipolar disorder, unspecified (principal); R45.851 Suicidal ideations; Z87.891 Personal history of nicotine dependence; Z79.82 Long term (current) use of aspirin; Z79.899 Other long term (current) drug therapy
CPT/HCPCS: 80048; 80307; 80320; 85025; 99284; G0480

== ENCOUNTER 2019-12-15 16:00 | Emergency (ER) | payer MEDICAID, SELFPAY ==
[2019-06-26 09:21] VITALS: BMI 34.8
[2019-12-15 16:01] VITALS: BP 159/96; PULSE 125; RESP 18; TEMP 35.9; O2SAT 99; BMI 36.6
--- NOTE | 2019-12-15 16:30 | EKG12_ITS ---
Test Reason : PLACEMENT Blood Pressure : / mmHG Vent. Rate : 091 BPM Atrial Rate : 091 BPM P-R Int : 150 ms QRS Dur : 094 ms QT Int : 364 ms P-R-T Axes : 045 003 057 degrees QTc Int : 447 ms Normal sinus rhythm Normal ECG Confirmed by KYLIE AREVALO, SHAYY ([id number]), manager editorial NEREYDA PEÑALOZA ([id number]) on 12/18/2019 1:33:04 PM Referred By: STACY Confirmed By:SHAYY ESPINAL MD
--- NOTE | 2019-12-15 16:32 | ED.VIS.GEN ---
History of Present Illness Chief Complaint: Suicidal Informant: Patient Narrative: Patient is a 39-year-old male with a past medical history of PTSD, bipolar, depression who presents to the emergency department for suicidal ideation. He states that over the past day he has been having auditory hallucinations. They have been telling him to kill himself. He does have a plan to slit his wrist. He has cut his wrists and overdosed intentionally before in the past. Last time he was ever admitted for psychiatric causes was last December. He denies taking any medications. He is a former alcoholic but quit 1 year ago. He denies any issues with drug abuse. He denies any visual hallucinations. Denies any chest pain, shortness of breath. No headache or vision changes. Patient recently did have a new psychiatric medication added 2 days ago. He is not sure what it was. He states he does have a history of auditory hallucinations before. Past Medical History - Allergies and Home Meds Allergies/Adverse Reactions: Allergies No Known Allergies Allergy (Verified 12/15/19 16:00) Primary Care Physician: Diomedes Shine DO [Primary Care Provider] - Prior records reviewed: Yes Surgical History: no surgical history Smoking Status: Former smoker Alcohol: Sober Drugs: None Review of Systems All systems negative except as indicated General: Denies: Chills, Fever, Sweats Eyes: Denies: Visual changes - bilaterally, Diplopia ENT: Denies: Rhinorrhea, Sore throat Cardiovascular: Denies: Chest pain, Palpitations Respiratory: Denies: Dyspnea, Cough, Dyspnea on exertion Gastrointestinal: Denies: Abdominal pain, Nausea, Vomiting, Diarrhea Genitourinary: Denies: Dysuria, Hematuria, Frequency Musculoskeletal: Denies: Back pain, Extremity Pain Skin: Denies: Rash, Wounds Neurological: Denies: Headache, Weakness, Numbness Psych: Reports: Depression, Suicidal thoughts, Suicidal ideations Physical Exam Vital Signs/Narrative: Vital Signs Temp Pulse Resp BP Pulse Ox 12/15/19 16:01 96.7 F L 125 H 18 159/96 H 99 Inital Vital Signs reviewed: Yes General: Well nourished, Well developed, No Acute Distress Head: Normocephalic, Atraumatic Eyes: Perrl, EOMI ENT: Moist mucous membranes, No rhinorrhea Neck: Supple, Nontender Cardiovascular: Regular rate, Regular rhythm, No murmurs Respiratory: No distress, CTA bilaterally, Chest nontender Abdomen: Soft, Nontender, Nondistended, Normal bowel sounds Back: Nontender, Normal Inspection Extremities: Nontender, No edema Skin: Normal color, No rash Neurological: Alert, Oriented x3, Cranial nerves II-XII grossly intact, Normal Strength, Normal Sensation Psychological: Normal affect, Normal Mood Diagnostic/Tx/Re-eval - EKG Initial EKG Interpretation: - - Rate of 91 bpm and normal sinus rhythm. Normal intervals. Normal axis. No ST elevations or depressions appreciated. No T wave abnormalities. - Medical Decision Making Patient presents to the emergency department for suicidal ideation and auditory hallucinations. Upon arrival to the emerge department is mildly tachycardic but otherwise normal vital signs. He does not appear in any acute distress. He is cooperative with physical exam. Answers questions appropriately. Patient does realize that he is hallucinating. Will check basic lab work. We will have crisis evaluate the patient for placement. Lab work was not remarkable except for mildly low potassium which was replaced orally. Crisis evaluate the patient and felt that he did require placement. [place] slip was filled out for his suicidal ideation with plan and auditory hallucinations. [facility] did accept the patient by Dr. Mendoza. He otherwise has been stable throughout ED stay. ED Disposition - Plan for ED Patient: Disposition: Home or Assisted Living Diagnosis: Suicidal ideation, Auditory hallucination Referrals: Diomedes Shine DO [Primary Care Provider] -
[2019-12-15 16:51] LABS: Absolute Lymphocyte Count 1.96 X10^3/uL (0.83-4.51); Absolute Neutrophil Count 6.7 X10^3/uL (2.0-7.7); Basophil# 0.07 X10^3/uL; Basophil% 0.7 % (0-1); Eosinophil# 0.13 X10^3/uL; Eosinophils% 1.4 % (0-5); Hematocrit 41.2 % (40-54); Hemoglobin 13.6 g/dL (13.0-16.5); Lymphocyte # 1.96 X10^3/ul (4.0); Lymphocyte % 20.4 % (19-41); Mean Corpuscular Hgb 27.5 pg (27.0-32.0); Mean Corpuscular Volume 83.2 fL (80-94); Mean Platelet Vol. 10.4 fl (6.2-12.0); Monocyte# 0.77 X10^3/uL; NRBC Flagged by Analyzer 0 % (0-5); Neutrophil # 6.65 X10^3/uL (2.7-7.7); Neutrophil % 69.1 % (47-70); Platelet Count 314 K/mm3 (150-450); RBC Distribution Width CV 13.2 % (11.6-14.6); RBC Distribution Width SD 39.9 fl (35.1-43.9); Red Blood Count 4.95 M/mm3 (4.6-6.2); White Blood Count 9.6 K/mm3 (4.4-11.0)
[2019-12-15 17:10] LABS: ALB/GLOB Ratio 0.9 RATIO (0.9-2.4); AST(SGOT) 27 U/L (15-37); Alanine Aminotransfer ALT/SGPT 55 U/L (16-61); Albumin, Serum 3.8 g/dL (3.2-5.0); Alkaline Phosphatase 94 U/L (45-117); Anion Gap 9 (5-15); BUN 8 mg/dL (7-18); BUN/Creat Ratio 6.7 RATIO (10-20); Calcium,Total 9.4 mg/dL (8.5-10.1); Chloride 105 mmol/L (98-107); EST Glomerular Filtration Rate 71 mL/min (>60); Est Glom Filt Rate - Afr Amer 86 mL/min (>60); Estimated Creatinine Clearance 73.84 ml/min; Globulin 4.1 g/dL (2.2-4.2); Glucose 91 mg/dL (74-106); Protein, Total 7.9 g/dL (6.4-8.2); Sodium Level 141 mmol/L (136-145)
[2019-12-15 17:15] LABS: Alcohol, Blood (Medical)-Serum < 3.0 mg/dL
[2019-12-15 17:25] LABS: Amphetamine Urine VISTA NEGATIVE (<1000 ng/mL); Barbiturate Urine VISTA NEGATIVE (< 200 ng/mL); Benzodiazepine Urine VISTA NEGATIVE (< 200 ng/mL); Cocaine Urine VISTA NEGATIVE (< 300 ng/mL); Ecstacy Urine VISTA NEGATIVE (< 500 ng/mL); Methadone Urine VISTA NEGATIVE (< 300 ng/mL); PCP Urine VISTA NEGATIVE (< 25 ng/mL); THC Urine VISTA NEGATIVE (< 50 ng/mL); Vista UDS pH Range 5
[2019-12-15 18:12] VITALS: RESP 17
[2019-12-15 19:00] VITALS: RESP 18
[2019-12-15 20:00] VITALS: RESP 18
[2019-12-15 20:48] VITALS: RESP 18
--- NOTE | 2019-12-15 21:18 | ED.RN ---
attempted to call [address] for report 2x and there was no answer.
--- NOTE | 2019-12-15 22:09 | ED.RN ---
REPORT CALLED TO SUN
[2019-12-15 22:18] VITALS: BP 137/87; PULSE 84; RESP 16; O2SAT 98
== END 2019-12-15 22:15 ==
LOC: ED 17:01
PROVIDERS: Emergency Provider Emergency Medicine; PCP Student in an Organized Health Care Education/Training Program
DX: F31.9 Bipolar disorder, unspecified (principal); R45.851 Suicidal ideations; R44.0 Auditory hallucinations; E87.6 Hypokalemia; F10.21 Alcohol dependence, in remission; Z79.82 Long term (current) use of aspirin; Z79.899 Other long term (current) drug therapy; Z91.5 Personal history of self-harm; Z87.891 Personal history of nicotine dependence
CPT/HCPCS: 36415; 80053; 80307; 80320; 84484; 85025; 93005; 99281; 99283; G0480

== ENCOUNTER 2020-04-12 17:07 | Emergency (ER) | payer MEDICAID, SELFPAY ==
[2020-04-12 17:08] VITALS: BP 134/81; PULSE 91; RESP 17; TEMP 36.2; O2SAT 96; BMI 34.3
--- NOTE | 2020-04-12 17:14 | ED.VIS.GEN ---
History of Present Illness Chief Complaint: Suicidal Informant: Patient Narrative: 39-year-old male presenting with [place] [employer] for evaluation of suicidal thoughts as well as attempt. Patient has history of depression/bipolar disorder. He is unsure of the medication that he takes. He sees a counselor at the counseling center as well as at [facility]. Patient states that he was upset over the of his in 2008. He states he has had recurrent episodes of this. He has attempted to cut his own wrists before. His current plan is to jump into traffic to try and kill himself. He has no homicidal ideation. Per [place] [employer] patient was threatening to jump into traffic and telling people that he wanted to . Patient states he called the crisis center and they called the police as well. Patient had jumped out into traffic just before the police arrived and was safely pulled from harm. He did not injured. Patient currently states that he feels suicidal. He admits to drinking 2 pitchers of beer today. He denies any drug use. - Past Medical History (1) Alcoholism Status: Chronic (2) Benign essential hypertension Status: Chronic (3) Bipolar disorder Status: Chronic Past Medical History - Allergies and Home Meds Allergies/Adverse Reactions: Allergies No Known Allergies Allergy (Verified 04/12/20 17:07) Primary Care Physician: Diomedes Shine DO [Primary Care Provider] - Prior records reviewed: Yes Past Medical History: - Surgical History: no surgical history Lives: Alone Smoking Status: Former smoker Alcohol: Heavy Drugs: None Review of Systems General: Denies: Chills, Fever, Sweats Eyes: Denies: Visual changes - bilaterally, Diplopia ENT: Denies: Rhinorrhea, Sore throat Cardiovascular: Denies: Chest pain, Palpitations Respiratory: Denies: Dyspnea, Cough, Dyspnea on exertion Gastrointestinal: Denies: Abdominal pain, Nausea, Vomiting, Diarrhea, Melena, Hematochezia Genitourinary: Denies: Dysuria, Hematuria, Frequency Musculoskeletal: Denies: Back pain, Extremity Pain Skin: Denies: Rash, Wounds Neurological: Denies: Headache, Weakness, Numbness Psych: Reports: Depression, Suicidal thoughts, Suicidal ideations Physical Exam Vital Signs/Narrative: Vital Signs Temp Pulse Resp BP Pulse Ox 04/12/20 17:08 97.1 F L 91 17 134/81 H 96 Inital Vital Signs reviewed: Yes General: Well nourished, No Acute Distress Head: Normocephalic, Atraumatic Eyes: Perrl, EOMI ENT: Moist mucous membranes, No rhinorrhea Cardiovascular: Regular rate, Regular rhythm, No murmurs Respiratory: No distress, CTA bilaterally, Chest nontender Extremities: Nontender, No edema Skin: Normal color, No rash Neurological: Alert, Oriented x3, Cranial nerves II-XII grossly intact Psychological: Depressed. Negative for: Agitated Diagnostic/Tx/Re-eval - Medical Decision Making 39-year-old male presenting for evaluation of suicidal ideation with attempt to jump out into traffic. He states this is due to the of his in 2008. He has periodic episodes of depression. He has a history of suicide attempt cutting his wrist a couple of years ago he states. Patient's lab work is unremarkable exception of low potassium at 3.2. This was replaced orally.. EtOH is 216. Urine drug screen is negative. Covid rapid antigen is negative and is not having symptoms of Covid?19. Given patient's EtOH level he will need a redraw at about midnight when his EtOH is less than 100. He will have to be reassessed by crisis and incoming ED physician. Impression: 1. Suicidal ideation 2. Suicide attempt ED Disposition - Plan for ED Patient: Referrals: Diomedes Shine DO [Primary Care Provider] -
--- NOTE | 2020-04-12 17:36 | CM.ED ---
SOCIAL WORK Case discussed with Dr. Irene. Patient presents to [facility] ER [place] Slipped by [facility]. Patient with suicidal ideation with attempt by jumping into traffic. Patient admits to consuming alcohol today. Awaiting medical clearance at this time. Taryn Harrington, AUTISM MOTOR SPECIALIST, FORGE SHOP MACHINE REPAIRER
[2020-04-12 17:56] LABS: Absolute Lymphocyte Count 2.41 X10^3/uL (0.83-4.51); Absolute Neutrophil Count 7.8 X10^3/uL (2.0-7.7); Basophil# 0.07 X10^3/uL; Basophil% 0.6 % (0-1); Eosinophil# 0.07 X10^3/uL; Eosinophils% 0.6 % (0-5); Hematocrit 40.3 % (40-54); Hemoglobin 13.5 g/dL (13.0-16.5); Lymphocyte # 2.41 X10^3/ul (4.0); Lymphocyte % 20.8 % (19-41); Mean Corp Hgb Conc 33.5 g/dL (32-36); Mean Corpuscular Volume 83.4 fL (80-94); Mean Platelet Vol. 10.1 fl (6.2-12.0); Monocyte# 1.15 X10^3/uL; Monocyte% 9.9 % (0-10); NRBC Flagged by Analyzer 0 % (0-5); Neutrophil # 7.83 X10^3/uL (2.7-7.7); Neutrophil % 67.7 % (47-70); Platelet Count 298 K/mm3 (150-450); RBC Distribution Width CV 13.6 % (11.6-14.6); RBC Distribution Width SD 40.8 fl (35.1-43.9); Red Blood Count 4.83 M/mm3 (4.6-6.2); White Blood Count 11.6 K/mm3 (4.4-11.0)
[2020-04-12 17:58] LABS: Amphetamine Urine VISTA NEGATIVE (<1000 ng/mL); Bacteria 0 SEEN /hpf (None Seen); Barbiturate Urine VISTA NEGATIVE (< 200 ng/mL); Benzodiazepine Urine VISTA NEGATIVE (< 200 ng/mL); Cocaine Urine VISTA NEGATIVE (< 300 ng/mL); Ecstacy Urine VISTA NEGATIVE (< 500 ng/mL); Methadone Urine VISTA NEGATIVE (< 300 ng/mL); Mucous, Urine 0 SEEN /hpf (<or=2+); PCP Urine VISTA NEGATIVE (< 25 ng/mL); Red Blood Cells-Urine 0 SEEN /hpf (0-5); Squamous Epithelial Cells - UA 0 SEEN /hpf (0-5); THC Urine VISTA NEGATIVE (< 50 ng/mL); Vista UDS pH Range 6; White Blood Cells 0 SEEN /hpf (0-5)
[2020-04-12 17:59] LABS: Color, Urine Yellow (Yellow); Glucose, Dipstick Normal (Normal); Ketone-Dipstick Negative (Negative); Leukocyte Esterase-Dipstick Negative /ul (Negative); Nitrite-Dipstick Negative (Negative); Occult Blood-Urine Negative /ul (Negative); Protein-Dipstick Negative (Negative); Specific Gravity, Urine 1.005 (1.002-1.030); Urine Bilirubin Dipstick Negative (Negative); Urine Clarity Clear (Clear); Urine Urobilinogen Normal (Normal)
[2020-04-12 18:16] LABS: AST(SGOT) 23 U/L (15-37); Alanine Aminotransfer ALT/SGPT 43 U/L (16-61); Albumin, Serum 3.7 g/dL (3.2-5.0); Alkaline Phosphatase 98 U/L (45-117); Anion Gap 10 (5-15); BUN 11 mg/dL (7-18); BUN/Creat Ratio 10.9 RATIO (10-20); Calcium,Total 8.6 mg/dL (8.5-10.1); Chloride 104 mmol/L (98-107); Creatinine, Serum 1.01 mg/dL (0.70-1.30); EST Glomerular Filtration Rate 87 mL/min (>60); Est Glom Filt Rate - Afr Amer 105 mL/min (>60); Estimated Creatinine Clearance 87.73 ml/min; Globulin 3.8 g/dL (2.2-4.2); Glucose 94 mg/dL (74-106); Potassium 3.2 mmol/L (3.5-5.1); Protein, Total 7.5 g/dL (6.4-8.2); Sodium Level 138 mmol/L (136-145)
--- NOTE | 2020-04-12 18:26 | CM.ED ---
SOCIAL WORK Alcohol level 216. Per Dr. Irene, patient to have lab re-draw between 11p-12a. Crisis to assess once medically cleared. Call to Crisis to update. Plan: Pending Crisis disposition. Taryn Harrington, METAL FENCE ERECTOR, REFUELING RAMP SUPERVISOR
[2020-04-12 18:40] VITALS: RESP 14
[2020-04-12 19:13] VITALS: RESP 14
[2020-04-12 22:30] VITALS: BP 152/89; PULSE 93; RESP 18; O2SAT 97
[2020-04-12 23:23] VITALS: RESP 16
[2020-04-13] VITALS (7 sets, daily range): BP systolic 112–114; BP diastolic 80–88; PULSE 89–97; RESP 14–18; O2SAT 97
--- NOTE | 2020-04-13 03:27 | ED.RN ---
E CHART WAS FAXED AT 0250, RECEIPT RECEIVED THAT IT WAS TRANSMITTED PROPERLY.
[2020-04-13] MEDS: Famotidine 20 MG Tablet PO (09:34)
[2020-04-13] MEDS: Meloxicam 15 MG Tablet PO (09:35)
[2020-04-13] MEDS: Thiamine Hydrochloride 100 MG Tablet PO (09:35)
[2020-04-13] MEDS: Aspirin 81 MG TAB.CHEW PO (09:35)
[2020-04-13] MEDS: OLANZapine 10 MG Tablet 20 MG PO (09:35)
[2020-04-13] MEDS: OXcarbazepine 300 MG Tablet PO ×2 (09:35)
== END 2020-04-13 10:08 ==
LOC: ED 18:59
PROVIDERS: Emergency Medicine; Emergency Provider Student in an Organized Health Care Education/Training Program; PCP Student in an Organized Health Care Education/Training Program
DX: T14.91XA Suicide attempt, initial encounter (principal); Y93.9 Activity, unspecified; Y92.9 Unspecified place or not applicable; Y99.9 Unspecified external cause status; E87.6 Hypokalemia; I10 Essential (primary) hypertension; E78.5 Hyperlipidemia, unspecified; F31.9 Bipolar disorder, unspecified; Z79.82 Long term (current) use of aspirin; Z79.899 Other long term (current) drug therapy; Z63.4 Disappearance and death of family member; Z91.5 Personal history of self-harm; Z87.891 Personal history of nicotine dependence
CPT/HCPCS: 36415; 80053; 80307; 81001; 82077; 85025; 87426; 99285

== ENCOUNTER 2020-07-25 08:40 | Emergency (ER) | payer OTHER, MEDICAID, SELFPAY ==
[2020-07-25 08:41] VITALS: BP 142/116; PULSE 86; RESP 16; TEMP 36.4; O2SAT 98; BMI 35.5
--- NOTE | 2020-07-25 08:56 | EX.ED.GENINJ ---
HPI History of Present Illness Chief Complaint: Laceration Informant: patient Narrative Narrative: Patient is a 40-year-old male presenting with laceration to his right pinky finger. Patient was at work when he somehow cut his finger on a cooker. Patient works at [employer]. He is exactly sure how he cut it. He denies any significant pain. Denies any numbness or weakness. He takes a daily aspirin and is not on any blood thinners otherwise. Last tetanus was 6 years ago. No other injuries or complaints at this time. Patient is right-hand dominant Tetanus Immunization: 5-10 years [facility] Medical History (Updated 07/25/20 @ 09:[address] Clarisse Howe, DO) Alcoholism Benign essential hypertension Bipolar disorder Home Medications aspirin 81 mg PO DAILY@0800 09/23/15 [History Last Taken Unknown] cholecalciferol (vitamin D3) 5,000 unit PO DAILY 08/18/18 [History Last Taken Unknown] riboflavin (vitamin B2) 100 mg PO 4X/DAY 08/18/18 [History Last Taken Unknown] rosuvastatin 40 mg PO DAILY 08/18/18 [History Last Taken Unknown] olanzapine 20 mg PO DAILY 01/11/19 [History Last Taken Unknown] prazosin 1 mg PO QHS 01/11/19 [History Last Taken Unknown] cyanocobalamin (vitamin B-12) 1,000 mcg PO BID 05/28/19 [History Last Taken Unknown] famotidine 20 mg PO DAILY 05/28/19 [History Last Taken Unknown] meloxicam 15 mg PO DAILY 05/28/19 [History Last Taken Unknown] oxcarbazepine 300 mg PO DAILY 12/15/19 [History Last Taken Unknown] thiamine HCl (vitamin B1) 100 mg PO DAILY 12/15/19 [History Last Taken Unknown] Allergy/AdvReac Type Severity Reaction Status Date / Time No Known Allergies Allergy Verified 07/25/20 08:43 Family History Father Myocardial infarction Surgical History H/O knee surgery History of hernia surgery Social History (Updated 08/28/19 @ 12:[address] Brian Venegas, DO) Smoking Status: Former smoker Tobacco: How many years used: 1 Smokeless tobacco user: chewing tobacco ROS ROS ED Constitutional Constitutional ED: Denies chills or fever(s) ENT ENT ED: Denies rhinorrhea or sore throat Cardiovascular Cardiovascular: Denies chest pain or palpitations Respiratory/Chest Respiratory/Chest: Denies cough or dyspnea Gastrointestinal Gastrointestinal: Denies nausea or vomiting Musculoskeletal Musculoskeletal: Denies arthralgias or myalgias Integumentary Reports other Details: Laceration right pinky finger ; Denies rash Neurologic Neurologic: Denies paresthesias or weakness Psychiatric Psychiatric: Denies anxiety or depression Hematologic/Lymphatic Hematologic/Lymphatic: Denies easy bleeding or easy bruising EXAM Physical Exam Const Vital Signs: 07/25/20 08:41 Temperature 97.6 F L Temperature Source Temporal Pulse Rate 86 Respiratory Rate 16 Blood Pressure 142/116 H Blood Pressure Mean 124 Pulse Ox 98 Oxygen Delivery Method Room Air HEENT atraumatic; Negative for tenderness Eyes PERRL and EOMs intact bilaterally Neck full ROM General: Negative for tenderness Chest Wall inspection of chest normal Resp normal respiratory effort Auscultation: Negative for wheezes Cardio Cardio Narrative: Brisk capillary refill Rate: regular rate Extremity full ROM Extremity Narrative: Normal range of motion of the right pinky finger at all joints. No obvious deformity General Extremety ED: Negative for edema or tenderness General Extremity: Negative for edema Neuro no focal motor deficits Sensorium / Orientation: alert Skin Skin Narrative: 1 cm partial-thickness laceration to the tip of the right pinky finger, linear Wounds: wounds noted PROC Procedures Lacerations Right pink finger : Length: 0.39 in Depth: Skin Shape: Linear Laceration repair: Dermabond Irrigated (ml): 999 Comment: Finger wound under running tap water for 3 minutes MDM MDM MDM Narrative Medical decision making narrative: Patient valuated for laceration to his right pinky finger. Does not appear contaminated. Patient declines tetanus. Repaired with Dermabond. See procedure note. No immediate complications. Patient given return to work note with restrictions. Workmen's Compensation paperwork is filled out. Counseled on wound care. Instructed follow-up with [employer]. Discharge Plan Triage Chief Complaint: Laceration ED Provider: Clarisse Howe Dx/Rx/DC Orders Clinical Impression: Laceration of right little finger Instructions: ED Laceration, Extremity: Skin Glue Prescriptions: No Action aspirin 81 MG tablet,chewable 81 mg PO DAILY@0800 RF: 0 riboflavin (vitamin B2) 100 MG tablet 100 mg PO 4X/DAY RF: 0 cholecalciferol (vitamin D3) 5,000 UNIT capsule 5,000 unit PO DAILY RF: 0 rosuvastatin 40 MG tablet 40 mg PO DAILY RF: 0 olanzapine 15 MG tablet 20 mg PO DAILY RF: 0 prazosin 2 MG capsule 1 mg PO QHS RF: 0 meloxicam 15 MG tablet 15 mg PO DAILY RF: 0 famotidine 20 MG tablet 20 mg PO DAILY RF: 0 cyanocobalamin (vitamin B-12) 500 MCG tablet 1,000 mcg PO BID RF: 0 thiamine HCl (vitamin B1) 100 MG tablet 100 mg PO DAILY RF: 0 oxcarbazepine 300 MG tablet 300 mg PO DAILY RF: 0 Primary Care Provider: Diomedes Shine Referrals: [facility]GROUP OF PHYSICIANS] - Diomedes Shine DO [Primary Care Provider] - Disposition Disposition: Home, self care
[2020-07-25 09:28] VITALS: RESP 17
== END 2020-07-25 09:30 | disposition home or self-care (01) ==
PROVIDERS: Emergency Provider Emergency Medicine; PCP Student in an Organized Health Care Education/Training Program
DX: S61.216A Laceration without foreign body of right little finger without damage to nail, initial encounter (principal); W45.8XXA Other foreign body or object entering through skin, initial encounter; Y93.9 Activity, unspecified; Y92.9 Unspecified place or not applicable; Y99.0 Civilian activity done for income or pay; I10 Essential (primary) hypertension; F10.20 Alcohol dependence, uncomplicated; F31.9 Bipolar disorder, unspecified; Z79.82 Long term (current) use of aspirin; Z79.1 Long term (current) use of non-steroidal anti-inflammatories (NSAID); Z79.899 Other long term (current) drug therapy; Z87.891 Personal history of nicotine dependence
CPT/HCPCS: 12001; 99282

== ENCOUNTER 2020-08-15 19:59 | Emergency (ER) | payer MEDICAID, SELFPAY ==
[2020-08-15 20:01] VITALS: BP 130/74; PULSE 94; RESP 16; TEMP 36.8; O2SAT 97; BMI 34.4
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
[2020-08-15 21:00] VITALS: RESP 16
[2020-08-15 21:25] LABS: Absolute Lymphocyte Count 2.58 X10^3/uL (0.83-4.51); Absolute Neutrophil Count 5.6 X10^3/uL (2.0-7.7); Basophil# 0.07 X10^3/uL; Basophil% 0.8 % (0-1); Eosinophils% 1.1 % (0-5); Hematocrit 40.9 % (40-54); Hemoglobin 13.4 g/dL (13.0-16.5); Lymphocyte # 2.58 X10^3/ul (0.83-4.51); Lymphocyte % 28.3 % (19-41); Mean Corp Hgb Conc 32.8 g/dL (32-36); Mean Corpuscular Hgb 27.2 pg (27.0-32.0); Mean Corpuscular Volume 83.1 fL (80-94); Mean Platelet Vol. 10.5 fl (6.2-12.0); Monocyte# 0.74 X10^3/uL; Monocyte% 8.1 % (0-10); NRBC Flagged by Analyzer 0 % (0-5); Neutrophil # 5.61 X10^3/uL (2.7-7.7); Neutrophil % 61.4 % (47-70); Platelet Count 295 K/mm3 (150-450); RBC Distribution Width CV 13.6 % (11.6-14.6); RBC Distribution Width SD 41.4 fl (35.1-43.9); Red Blood Count 4.92 M/mm3 (4.6-6.2); White Blood Count 9.1 K/mm3 (4.4-11.0)
[2020-08-15 21:48] LABS: Anion Gap 7 (5-15); BUN 9 mg/dL (7-18); Calcium,Total 8.8 mg/dL (8.5-10.1); Chloride 109 mmol/L (98-107); Creatinine, Serum 1.12 mg/dL (0.70-1.30); EST Glomerular Filtration Rate 77 mL/min (>60); Est Glom Filt Rate - Afr Amer 93 mL/min (>60); Estimated Creatinine Clearance 78.33 ml/min; Glucose 103 mg/dL (74-106); Potassium 3.4 mmol/L (3.5-5.1); Sodium Level 142 mmol/L (136-145)
[2020-08-15 22:00] LABS: Amphetamine Urine VISTA NEGATIVE (<1000 ng/mL); Barbiturate Urine VISTA NEGATIVE (< 200 ng/mL); Benzodiazepine Urine VISTA NEGATIVE (< 200 ng/mL); Cocaine Urine VISTA NEGATIVE (< 300 ng/mL); Ecstacy Urine VISTA NEGATIVE (< 500 ng/mL); Methadone Urine VISTA NEGATIVE (< 300 ng/mL); PCP Urine VISTA NEGATIVE (< 25 ng/mL); THC Urine VISTA NEGATIVE (< 50 ng/mL); Vista UDS pH Range 6
--- NOTE | 2020-08-15 22:00 | CM.ED ---
SW Note Referral Source: MD Referral Reason: [employer] SW noted that patient's tox screen indicated he was still intoxicated. Due to time SW called Crisis and made referral for them to follow up on. SW then faxed over all labs that were back for patient, and face sheet. cloud automation tester and MD updated. Crisis indicated they are aware of patient. Plan: Assess by crisis.
[2020-08-15] MEDS: Potassium Chloride Oral Tablet 20 MEQ PO (22:30)
[2020-08-15 22:31] VITALS: BP 121/79; PULSE 89; RESP 14; O2SAT 96
[2020-08-16 01:26] VITALS: RESP 16
[2020-08-16 03:09] VITALS: BP 121/81; PULSE 80; RESP 16; O2SAT 96
--- NOTE | 2020-08-16 04:13 | ED.RN ---
CRISIS ON SITE TO SEE THIS PT
[2020-08-16 05:00] VITALS: RESP 14
== END 2020-08-16 05:24 | disposition home or self-care (01) ==
LOC: ED 20:32
PROVIDERS: Emergency Provider Student in an Organized Health Care Education/Training Program; PCP Student in an Organized Health Care Education/Training Program
DX: T14.91XA Suicide attempt, initial encounter (principal); X83.8XXA Intentional self-harm by other specified means, initial encounter; Y93.9 Activity, unspecified; Y92.9 Unspecified place or not applicable; Y99.9 Unspecified external cause status; E87.6 Hypokalemia; I10 Essential (primary) hypertension; F10.229 Alcohol dependence with intoxication, unspecified; Y90.6 Blood alcohol level of 120-199 mg/100 ml; F31.9 Bipolar disorder, unspecified; Z79.82 Long term (current) use of aspirin; Z79.1 Long term (current) use of non-steroidal anti-inflammatories (NSAID); Z87.891 Personal history of nicotine dependence
CPT/HCPCS: 36415; 80048; 80307; 82077; 85025; 87426; 99283

== ENCOUNTER → 2021-12-18 | Outpatient (CLI) | payer MEDICAID, SELFPAY ==
[2021-12-18 14:13] LABS: Ferritin 69 ng/mL (26-388); Iron 170 ug/dL (65-175); Iron Binding Capacity,Total 456 ug/dL (250-450)
[2021-12-21 07:46] LABS: PERCENT IRON SATURATION 37.3 % (15.0-55.0)
== END | disposition home or self-care (01) ==
LOC: LABSPEC 13:32
PROVIDERS: PCP Student in an Organized Health Care Education/Training Program; Referring Provider Nurse Practitioner Family; Visit Provider Nurse Practitioner Family
DX: D64.9 Anemia, unspecified (principal); K92.1 Melena; R53.1 Weakness
CPT/HCPCS: 82728; 83540; 83550

== ENCOUNTER 2022-01-03 18:21 | Emergency (ER) | payer MEDICAID, SELFPAY ==
[2022-01-03 18:22] VITALS: BP 173/95; PULSE 80; RESP 18; TEMP 36.5; O2SAT 99; BMI 35.5
[2022-01-03 18:34] VITALS: BP 152/80; PULSE 77; RESP 18; O2SAT 100
--- NOTE | 2022-01-03 18:34 | EKG12_ITS ---
Test Reason : DYSRHYTHMIA Blood Pressure : / mmHG Vent. Rate : 074 BPM Atrial Rate : 074 BPM P-R Int : 156 ms QRS Dur : 096 ms QT Int : 390 ms P-R-T Axes : 047 008 040 degrees QTc Int : 432 ms Normal sinus rhythm Normal ECG Confirmed by KYLIE AREVALO, SHAYY ([id number]), editor department MONA CHAN ([id number]) on 01/04/2022 9:36:17 AM Referred By: Confirmed By:SHAYY ESPINAL MD
--- NOTE | 2022-01-03 18:35 | EDS_ITS ---
HPI <TIO Lovell - Last Filed: 01/03/22 19:39> History of Present Illness Chief Complaint: Dizziness Narrative Narrative: 41-year-old male with history of PTSD, bipolar, hypertension, hyperlipidemia presents to the emergency department with complaints of feeling cold, shaky, generalized weakness, intermittent lightheadedness. Patient states he was recently at [facility] for a GI bleed, patient's last known hemoglobin was 9.6. Patient states he has been feeling well however today after he woke up and was moving around, he started to feel shaky and cold again. He is concerned that the same thing is happening. Denies any chest pain or shortness of breath. Denies any physical abdominal pain, nausea or vomiting. Patient states that dizziness comes and goes. He is here with his significant other. [facility] <TIO Lovell - Last Filed: 01/03/22 19:39> [facility] Medical History (Updated 01/03/22 @ 19:38 by TIO Lovell) Alcoholism Benign essential hypertension Bipolar disorder Home Medications aspirin 81 mg chewable tablet 81 mg PO DAILY@0800 09/23/15 [History Last Taken Unknown] cholecalciferol (vitamin D3) 125 mcg (5,000 unit) capsule 5,000 unit PO DAILY 08/18/18 [History Last Taken Unknown] riboflavin (vitamin B2) 100 mg tablet 100 mg PO 4X/DAY 08/18/18 [History Last Taken Unknown] rosuvastatin 40 mg tablet 40 mg PO DAILY 08/18/18 [History Last Taken Unknown] olanzapine 15 mg tablet 20 mg PO DAILY 01/11/19 [History Last Taken Unknown] prazosin 2 mg capsule 1 mg PO QHS 01/11/19 [History Last Taken Unknown] cyanocobalamin (vitamin B-12) 500 mcg tablet 1,000 mcg PO BID 05/28/19 [History Last Taken Unknown] famotidine 20 mg tablet 20 mg PO DAILY 05/28/19 [History Last Taken Unknown] meloxicam 15 mg tablet 15 mg PO DAILY 05/28/19 [History Last Taken Unknown] oxcarbazepine 300 mg tablet 300 mg PO DAILY 12/15/19 [History Last Taken Unknown] thiamine HCl (vitamin B1) 100 mg tablet 100 mg PO DAILY 12/15/19 [History Last Taken Unknown] aripiprazole 5 mg tablet 5 mg PO DAILY 01/03/22 [History Last Taken Unknown] bupropion HCl 150 mg 24 hr tablet, extended release 150 mg PO DAILY 01/03/22 [History Last Taken Unknown] bupropion HCl 300 mg 24 hr tablet, extended release 300 mg PO DAILY 01/03/22 [History Last Taken Unknown] lansoprazole 30 mg capsule,delayed release 30 mg PO DAILY 01/03/22 [History Last Taken Unknown] melatonin 10 mg capsule 10 mg PO DAILY 01/03/22 [History Last Taken Unknown] metoprolol succinate 50 mg tablet,extended release 24 hr 50 mg PO DAILY 01/03/22 [History Last Taken Unknown] Allergy/AdvReac Type Severity Reaction Status Date / Time No Known Allergies Allergy Verified 01/03/22 18:43 Family History Father Myocardial infarction Surgical History H/O knee surgery History of hernia surgery Social History Smoking Status: Former smoker Tobacco: How many years used: 1 Smokeless tobacco user: chewing tobacco ROS <Juvenal Ramos NP-Karis - Last Filed: 01/03/22 19:39> ALONSO ED ROS Narrative Constitutional: Negative for fever, weight loss,. Positive generalized weakness. Positive for chills Eyes: Negative for vision loss, vision change, double vision ENT: Negative for any sore throat, ear pain, congestion Cardiovascular: Negative for any chest pain, tightness, palpitations Respiratory: Negative for any cough, sputum production, hemoptysis, dyspnea, dyspnea on exertion, orthopnea Gastrointestinal: Negative for any abdominal pain, nausea, vomiting, diarrhea, constipation, blood in stool, blood in vomit : Negative for any urinary frequency, dysuria, retention, blood in urine Muscle skeletal: Negative for any muscle joint pain, stiffness, myalgias, arthralgias, neck pain, back pain Neurological: Negative for any headache, syncope, numbness or tingling. Positive for intermittent dizziness Skin: Negative for any rashes, lumps, itching, abrasions, lacerations Psychiatric: Negative for any depression, anxiety, stress, suicidal ideation, homicidal ideation Hematologic: Negative for any easy bruising, excessive bruising, easy bleeding Allergies: Negative for any eczema, hives, rash EXAM <TIO Lovell - Last Filed: 01/03/22 19:39> Physical Exam Narrative Exam Narrative: Vital signs reviewed. Patient appears generally well HEET: Head normocephalic atraumatic, TMs clear bilaterally. Posterior pharynx is clear, moist mucous membranes. Nares clear bilaterally. Neck: Supple with no lymphadenopathy or tenderness. No signs of meningismus, negative jolt sign. Cardiac: Regular rate and rhythm no murmurs gallops or rubs, equal peripheral pulses bilaterally. Respiratory: Lungs clear to auscultation bilaterally. No chest tenderness. Abdomen: Soft, nontender, nondistended. No abdominal bruit or pulsatile masses. No hepatosplenomegaly Extremities: No peripheral edema, no signs of gross trauma or deformity. Active full range of motion of all extremities. Neuro: Cranial nerves II through XII intact, no focal neurological deficits. Skin: Clean dry and intact with no rash, purpura, petechiae, vesicles or pustules. Backs/flank: No CVA tenderness, no midline spinal tenderness, no deformity. Psych: Normal mood and affect. No SI, HI or acute psychosis. Const Vital Signs: 01/03/22 18:22 01/03/22 18:34 01/03/22 18:34 Temperature 97.7 F L Temperature Source Temporal Pulse Rate 80 77 Pulse Rate [Lying] Pulse Rate [Sitting (for 1 minute prior to obtaining)] Pulse Rate [Standing (for 1 minute prior to obtaining)] Respiratory Rate 18 18 Respiratory Effort Normal Non-Labored Respiratory Pattern Normal Blood Pressure 173/95 H 152/80 H Blood Pressure [Lying] Blood Pressure [Sitting (for 1 minute prior to obtaining)] Blood Pressure [Standing (for 1 minute prior to obtaining)] Blood Pressure Mean 121 104 Blood Pressure Mean [Lying] Blood Pressure Mean [Sitting (for 1 minute prior to obtaining)] Blood Pressure Mean [Standing (for 1 minute prior to obtaining)] Pulse Ox 99 100 Oxygen Delivery Method Room Air Room Air 01/03/22 18:47 01/03/22 19:40 Temperature Temperature Source Pulse Rate 75 Pulse Rate [Lying] 85 Pulse Rate [Sitting (for 1 minute prior to obtaining)] 80 Pulse Rate [Standing (for 1 minute prior to obtaining)] 82 Respiratory Rate 13 Respiratory Effort Respiratory Pattern Blood Pressure 136/77 H Blood Pressure [Lying] 140/76 H Blood Pressure [Sitting (for 1 minute prior to obtaining)] 133/98 H Blood Pressure [Standing (for 1 minute prior to obtaining)] 151/69 H Blood Pressure Mean Blood Pressure Mean [Lying] 97 Blood Pressure Mean [Sitting (for 1 minute prior to obtaining)] 109 Blood Pressure Mean [Standing (for 1 minute prior to obtaining)] 96 Pulse Ox 96 Oxygen Delivery Method Positive well nourished and well developed General Appearance ED: well developed <Dr. Roland Hernandez MD - Last Filed: 01/03/22 19:42> Physical Exam Const Vital Signs: 01/03/22 18:22 01/03/22 18:34 01/03/22 18:34 Temperature 97.7 F L Temperature Source Temporal Pulse Rate 80 77 Pulse Rate [Lying] Pulse Rate [Sitting (for 1 minute prior to obtaining)] Pulse Rate [Standing (for 1 minute prior to obtaining)] Respiratory Rate 18 18 Respiratory Effort Normal Non-Labored Respiratory Pattern Normal Blood Pressure 173/95 H 152/80 H Blood Pressure [Lying] Blood Pressure [Sitting (for 1 minute prior to obtaining)] Blood Pressure [Standing (for 1 minute prior to obtaining)] Blood Pressure Mean 121 104 Blood Pressure Mean [Lying] Blood Pressure Mean [Sitting (for 1 minute prior to obtaining)] Blood Pressure Mean [Standing (for 1 minute prior to obtaining)] Pulse Ox 99 100 Oxygen Delivery Method Room Air Room Air 01/03/22 18:47 01/03/22 19:40 Temperature Temperature Source Pulse Rate 75 Pulse Rate [Lying] 85 Pulse Rate [Sitting (for 1 minute prior to obtaining)] 80 Pulse Rate [Standing (for 1 minute prior to obtaining)] 82 Respiratory Rate 13 Respiratory Effort Respiratory Pattern Blood Pressure 136/77 H Blood Pressure [Lying] 140/76 H Blood Pressure [Sitting (for 1 minute prior to obtaining)] 133/98 H Blood Pressure [Standing (for 1 minute prior to obtaining)] 151/69 H Blood Pressure Mean Blood Pressure Mean [Lying] 97 Blood Pressure Mean [Sitting (for 1 minute prior to obtaining)] 109 Blood Pressure Mean [Standing (for 1 minute prior to obtaining)] 96 Pulse Ox 96 Oxygen Delivery Method MDM <TIO Lovell - Last Filed: 01/03/22 19:39> MDM Lab Data Labs: Laboratory Results - last 24 hr 01/03/22 01/03/22 18:45 18:45 WBC 8.1 RBC 3.74 L Hgb 10.7 L Hct 35.2 L MCV 94.1 H MCH 28.6 MCHC 30.4 L RDW Std Deviation 52.6 H RDW Coeff of Aaron 15.0 H Plt Count 301 MPV 10.7 Immature Gran % (Auto) 0.400 Neut % (Auto) 56.6 Lymph % (Auto) 29.2 [place] % (Auto) 10.1 H Eos % (Auto) 2.6 Baso % (Auto) 1.1 H Absolute Neuts (auto) 4.6 Absolute Lymphs (auto) 2.36 Nucleated RBC % 0 Sodium 143 Potassium 4.0 Chloride 109 H Carbon Dioxide 28.0 Anion Gap 6 BUN 6 L Creatinine 1.24 Estim Creat Clear Calc 70.03 Est GFR (MDRD) Af Amer 82 Est GFR (MDRD) Non-Af 68 BUN/Creatinine Ratio 4.8 L Glucose 93 Calcium 9.0 EKG Normal sinus rhythm: Comments: Normal sinus rhythm, rate 74 bpm, MA interval 156 ms, QRS duration 96 ms, no acute ST elevation, no acute infarct noted. Treatment and Re-Evaluation Narrative: Patient appears well, patient appears nontoxic, vital signs are stable patient presents to the emergency department with complaints of feeling shaky, jittery, dizziness which he describes as lightheaded, he was also admitted for anemia rectal bleeding 2 weeks ago. Patient's physical examination was grossly unremarkable, patient has no pain. Patient did receive an EKG which was unremarkable. Patient did receive some basic laboratory values, patient CBC showed a stable hemoglobin at 10.7. Patient's last known hemoglobin is 9.6, this is an improvement. Patient's kidney function was unremarkable. Patient did receive orthostatic vital signs which were negative. Patient felt much better after IV fluids. Patient feels well enough to go home, he will follow-up closely with his PCP and also Dr. Cunningham for a colonoscopy. Patient is happy with the plan of care, is instructed return for any worsening symptoms. Patient instructed return for any bloody stools, dizziness, syncope, chest pain. <Dr. Roland Hernandez MD - Last Filed: 01/03/22 19:42> [facility] Narrative Medical decision making narrative: I have personally performed a face to face assessment of the patient and have reviewed the AFIA Note. I performed a substantive portion of the visit including all aspects of the following. My cobb findings include: History is remarkable for dizziness which he defines as lightheadedness and shaking chills. He states he had similar episodes in his admitted 2 weeks ago for GI bleed. He had blood on rectal exam. He states he was 2 pints low . He is no more paler than normal. He denies headache, double vision, blurred vision or loss of vision. He does report tenderness. States that is chronic. He denies trouble speech or swallowing. He denies dyspnea, dyspnea on exertion or chest discomfort with exertion. He denies nausea, vomiting or diarrhea. He denies black or maroon-colored stool. He denies bright red blood per rectum. Exam is patient appears pale. Conjunctive is pale. HEENT exam is otherwise unremarkable. Lungs are clear to auscultation. Heart is regular. There is no murmur, gallop or rub. Rate is normal. Abdomen soft nontender bowel sounds are present diminished. There is no neurovascular findings upper or lower extremity. Neuro exam is nonfocal. Medical Decision Making we will obtain orthostatic vital signs. EKG to evaluate for cardiac dysrhythmia. CBC and BMP to assess H&H and BUN/creatinine ratio. Other additions or changes: Blood pressure is elevated. He is on antihypertensive meds. He reports compliance. Lab Data Attestation: I reviewed the patient's lab results. Lab results narrative: H&H is up approximately 1 g compared to prior per BUN to creatinine ratio was normal. Labs: Laboratory Results - last 24 hr 01/03/22 01/03/22 18:45 18:45 WBC 8.1 RBC 3.74 L Hgb 10.7 L Hct 35.2 L MCV 94.1 H MCH 28.6 MCHC 30.4 L RDW Std Deviation 52.6 H RDW Coeff of Aaron 15.0 H Plt Count 301 MPV 10.7 Immature Gran % (Auto) 0.400 Neut % (Auto) 56.6 Lymph % (Auto) 29.2 [place] % (Auto) 10.1 H Eos % (Auto) 2.6 Baso % (Auto) 1.1 H Absolute Neuts (auto) 4.6 Absolute Lymphs (auto) 2.36 Nucleated RBC % 0 Sodium 143 Potassium 4.0 Chloride 109 H Carbon Dioxide 28.0 Anion Gap 6 BUN 6 L Creatinine 1.24 Estim Creat Clear Calc 70.03 Est GFR (MDRD) Af Amer 82 Est GFR (MDRD) Non-Af 68 BUN/Creatinine Ratio 4.8 L Glucose 93 Calcium 9.0 Discharge Plan Triage Chief Complaint: Dizziness ED Midlevel Provider: Juvenal Ramos ED Provider: Roland Hernandez Dx/Rx/DC Orders Clinical Impression: Benign essential hypertension, History of anemia Instructions: Anemia, Controlling High Blood Pressure Prescriptions: No Action aspirin 81 MG tablet,chewable 81 mg PO DAILY@0800 riboflavin (vitamin B2) 100 MG tablet 100 mg PO 4X/DAY cholecalciferol (vitamin D3) 5,000 UNIT capsule 5,000 unit PO DAILY rosuvastatin 40 MG tablet 40 mg PO DAILY olanzapine 15 MG tablet 20 mg PO DAILY prazosin 2 MG capsule 1 mg PO QHS Label Comments: TAKE 1 CAPSULE BY MOUTH AT BEDTIME FOR BAD DREAMS meloxicam 15 MG tablet 15 mg PO DAILY famotidine 20 MG tablet 20 mg PO DAILY cyanocobalamin (vitamin B-12) 500 MCG tablet 1,000 mcg PO BID thiamine HCl (vitamin B1) 100 MG tablet 100 mg PO DAILY oxcarbazepine 300 MG tablet 300 mg PO DAILY metoprolol succinate 50 mg tablet extended release 24 hr 50 mg PO DAILY lansoprazole 30 mg capsule,delayed release(DR/EC) 30 mg PO DAILY aripiprazole 5 mg tablet 5 mg PO DAILY bupropion HCl 300 mg tablet extended release 24 hr 300 mg PO DAILY bupropion HCl 150 mg tablet extended release 24 hr 150 mg PO DAILY melatonin 10 mg capsule 10 mg PO DAILY Primary Care Provider: Diomedes Shine Referrals: Diomedes Shine DO [Primary Care Provider] - Activity Restrictions/Additional Instructions: Continue to follow-up outpatient. Disposition Disposition: Home, Self Care
[2022-01-03 18:47] VITALS: BP 133/98; BP 140/76; BP 151/69; PULSE 80; PULSE 82; PULSE 85
[2022-01-03] MEDS: 0.9% Normal Saline 1,000 ML 1000 ML IV (18:54)
[2022-01-03 19:01] LABS: Absolute Lymphocyte Count 2.36 X10^3/uL (0.83-4.51); Absolute Neutrophil Count 4.6 X10^3/uL (2.0-7.7); Basophil# 0.09 X10^3/uL; Basophil% 1.1 % (0-1); Eosinophil# 0.21 X10^3/uL; Eosinophils% 2.6 % (0-5); Hematocrit 35.2 % (40-54); Hemoglobin 10.7 g/dL (13.0-16.5); Lymphocyte # 2.36 X10^3/ul (0.83-4.51); Lymphocyte % 29.2 % (19-41); Mean Corp Hgb Conc 30.4 g/dL (32-36); Mean Corpuscular Hgb 28.6 pg (27.0-32.0); Mean Corpuscular Volume 94.1 fL (80-94); Mean Platelet Vol. 10.7 fl (6.2-12.0); Monocyte# 0.82 X10^3/uL; Monocyte% 10.1 % (0-10); NRBC Flagged by Analyzer 0 % (0-5); Neutrophil # 4.58 X10^3/uL (2.7-7.7); Neutrophil % 56.6 % (47-70); Platelet Count 301 K/mm3 (150-450); RBC Distribution Width SD 52.6 fl (35.1-43.9); Red Blood Count 3.74 M/mm3 (4.6-6.2); White Blood Count 8.1 K/mm3 (4.4-11.0)
[2022-01-03 19:02] LABS: Anion Gap 6 (5-15); BUN 6 mg/dL (7-18); BUN/Creat Ratio 4.8 RATIO (10-20); Chloride 109 mmol/L (98-107); Creatinine, Serum 1.24 mg/dL (0.70-1.30); EST Glomerular Filtration Rate 68 mL/min (>60); Est Glom Filt Rate - Afr Amer 82 mL/min (>60); Estimated Creatinine Clearance 70.03 ml/min; Glucose 93 mg/dL (74-106); Sodium Level 143 mmol/L (136-145)
[2022-01-03 19:40] VITALS: BP 136/77; PULSE 75; RESP 13; O2SAT 96
== END 2022-01-03 20:04 | disposition home or self-care (01) ==
PROVIDERS: Nurse Practitioner; Emergency Provider Emergency Medicine; PCP Student in an Organized Health Care Education/Training Program; Visit Provider Emergency Medicine
DX: I10 Essential (primary) hypertension (principal); F10.21 Alcohol dependence, in remission; F31.9 Bipolar disorder, unspecified; E78.5 Hyperlipidemia, unspecified; R42 Dizziness and giddiness; F43.10 Post-traumatic stress disorder, unspecified; Z87.891 Personal history of nicotine dependence
CPT/HCPCS: 80048; 85025; 93005; 96360; 99284; J7030; A4216